=== PATIENT | female | born 1990 | race Caucasian/White ===

== ENCOUNTER 2023-02-13 21:33 | Outpatient (REF) | payer BC, SELFPAY ==
[2023-02-17 09:09] LABS: Age Gdln ACOG Testing Note (.); HPV Aptima Negative (Negative); IGP, Aptima HPV, rfx 16/18,45 Note (.)
== END 2023-02-13 21:34 | disposition home or self-care (01) ==
LOC: LAB 21:33
PROVIDERS: PCP Obstetrics & Gynecology; Visit Provider Obstetrics & Gynecology
DX: Z12.4 Encounter for screening for malignant neoplasm of cervix (principal); Z11.51 Encounter for screening for human papillomavirus (HPV)
CPT/HCPCS: 87624; G0145

== ENCOUNTER 2024-04-04 19:02 | Outpatient (REF) | payer BC, SELFPAY ==
[2024-04-10 13:08] LABS: Age Gdln ACOG Testing Note (.); HPV Aptima Negative (Negative); IGP, Aptima HPV, rfx 16/18,45 Note (.)
== END 2024-04-04 19:03 | disposition home or self-care (01) ==
LOC: LAB 19:02
PROVIDERS: PCP Obstetrics & Gynecology; Visit Provider Physician Assistant
DX: Z01.419 Encounter for gynecological examination (general) (routine) without abnormal findings (principal)
CPT/HCPCS: 87624; 88175

== ENCOUNTER 2025-04-08 12:40 | Outpatient (REF) | payer BC, SELFPAY ==
--- OUTSIDE RECORDS SUMMARY | 2025-04-08 12:48 | XMS_ITS | CCD ---
Author Organization [facility] Care Team Providers Care Technician Support Engineer Name Role Phone Ruel Carlson Primary Care Provider [phone] RUEL CARLSON Primary Care Unavailable Ruel Carlson DO Primary Care Provider RUEL CARLSON Primary Care Unavailable STEPHANIE PANGL Attending Unavailable CHRISTOPHER PANG Consulting Unavailable CHIRCHRISTOPHER WRAY Admitting Unavailable NUNO EDGAR Consulting Unavailable DUONG, DR PALAFOX Consulting Unavailable DUONG, DR PALAFOX Admitting Unavailable DUONG, DR PALAFOX Attending Unavailable KARASIK, DR JOHNSON Consulting Unavailable DUONG, DR PALAFOX Admitting Unavailable DUONG, DR PALAFOX Attending Unavailable DUONG, DR PALAFOX Consulting Unavailable DUONG, DR PALAFOX Procedure Practitioner Unavailab le DUONG, DR PALAFOX Admitting Unavailable DUONG, DR PALAFOX Attending Unavailable DUONG, DR PALAFOX Attending Unavailable DUONG, DR PALAFOX Admitting Unavailable DUONG, DR PALAFOX Consulting Unavailable DUONG, DR PALAFOX Admitting Unavailable DUONG, DR PALAFOX Attending Unavailable ZIEBER, DR GRISELDA Lemon Consulting Unavailable Ruel Carlson MD Primary Care Provider [phone] Daphne MAC, Anoop Marcum Primary Care Unavailable Luis A Peralta MD Attending Roby jacobson [facility] Consulting Unavailable Luis A Peralta MD Attending Roby Serna MD, Anoop Marcum Primary Care Unavailable Daphne MAC, Anoop Marcum Primary Care Unavailable Elda Hewitt PA-C Attending Randal Serna MD, Anoop Marcum Primary Care Unavailable Luis A Peralta MD Attending Roby Serna MD, Anoop Marcum Primary Care Unavailable Luis A Peralta MD Attending Roby jacobson Medications Current Medications Medication Drug Class(es) Dates Sig (Normalized) Sig (Original) Acetaminophen (5 sources) Start: 03-16-2022 acetaminophen (TYLENOL) tablet 650 mg End: 03-16-2022 take 2 tablets by mouth every six hours as needed for pain acetaminophen (TYLENOL) 325 MG tablet Take 650 mg by mouth every 6 hours as needed for Pain 0 03/16/2022 Discontinued (Stop Taking at Discharge) drospirenone 4 mg oral tablet (3 sources) Progestin Start: 06-28-2024 End: 04-08-2025 take 1 tablet by mouth once daily Drospirenone (Slynd) 4 MG tablet Indications: Encounter for initial prescription of contraceptive pills Take 4 mg by mouth Daily 84 tablet 2 06/28/2024 04/08/2025 Discontinued drospirenone 3 mg / ethinyl estradiol 0.03 mg oral tablet (12 sources) Progestin, Estrogen Start: 02-13-2023 End: 04-04-2024 drospirenone-ethinyl estradiol (Rachele, Ocella) 3-0.03 MG tablet Indications: Well woman exam with routine gynecological exam Take 1 tablet by mouth in the morning. 28 tablet 11 02/13/2023 04/04/2024 Discontinued (Other) Start: 09-01-2022 End: 04-08-2025 drospirenone-ethinyl estradi ol (Ocella) 3-0.03 MG tablet 1 (one) time each day at the same time. 09/01/2022 04/08/2025 Discontinued Start: 11-12-2019 take 1 tablet by jaswinder th once daily, then take 3 tablets by mouth once drospirenone-ethinyl estradiol (OSORIO) 3-0.02 MG per tablet Take 1 tablet by mouth daily 84 tablet 3 11/12/2019 Active Levonorgestrel-Ethinyl Estra d (Tyblume) 0.1-20 MG-MCG chewable tablet (3 sources) Start: 07-03-2024 End: 07-03-2025 Levonorgestrel-Ethinyl Estra d (Tyblume) 0.1-20 MG-MCG chewable tablet Indications: control counseling Chew 1 tablet Daily 28 tablet 11 07/03/2024 07/03/2025 Active norethindrone 0.35 mg oral tablet (3 sources) Start: 08-24-2022 End: 04-04-2024 norethindrone (Micronor) 0.3 5 MG tablet 1 (one) time each day at the same time. 08/24/2022 04/04/2024 Discontinued (Other) Osnswshq-Szb-Du-FA (, w/Iron & FA,) 27-0.8 MG tablet (7 sources) End: 04-08-2025 Rsbtphil-Tgt-Ak-FA (, w/Iron & FA,) 27-0.8 MG tablet 1 (one) time each day at the same time. 04/08/2025 Discontinued Multivi t-Min-Fe-FA (, w/Iron & FA,) 27-0.8 MG tablet 1 (one) time each day at the same time. Active Vit-Iron Carbonyl-FA ( VITAMIN PLUS IRON) 29-1 MG TABS tablet (1 source) Start: 03-16-2022 take 1 tablet by mouth in the morning Vit-Iron Carbonyl-FA ( VITAMIN PLUS IRON) 29-1 MG TABS tablet Take 1 tablet by mouth in the morning. 30 tablet 3 03/16/2022 Active vitamin plus iron 29-1 MG tablet 1 tablet (1 source) Start: 03-16-2022 vitam in plus iron 29-1 MG tablet 1 tablet Completed/Discontinued Medications Medication Drug Class(es) Dates Sig (Normalized) Sig (Original) Ascorbic Acid (4 sources) Vitamin C End: 03-16-2022 Ascorbic Acid (VITAMIN C PO) Take by mouth 0 03/16/2022 Discontinued (Stop Taking at Discharge) Ascorbic Acid (V ITAMIN C PO) Take by mouth 0 Active aspirin 81 mg chewable tablet (2 sources) Platelet Aggregation Inhibitor, Nonsteroidal Anti-inflammatory Drug Start: 03-16-2022 take 81 mg by mouth once daily 81 mg, Oral, DAILY, First dose on Mon03/16/22 at 0900, Until Discontinued Start: 03-15-2022 End: 03-15-2022 aspirin tablet 325 mg clomiPHENE citrate 50 mg oral tablet (2 sources) Estrogen Agonist/Antagonist Start: 11-03-2020 End: 03-16-2022 clomiPHENE (CLOMID) 50 MG tablet Take 3 tablets by mouth daily Take 1 tablet by mouth on days 5 through 9 of cycle 15 tablet 2 11/03/2020 03/16/2022 Discontinued (Stop Taking at Discharge) 0.4 ml enoxaparin sodium 100 mg/ml prefilled syringe (1 source) Low Molecular Weight Heparin Start: 03-16-2022 inject 40 mg by subcutaneous injection once daily 40 mg, SubCUTAneous, DAILY, First dose on Mon03/16/22 at 0900, Until Discontinued Indication of Use: Prophylaxis-DVT/PE medroxyPROGESTERone acetate 10 mg oral tablet (2 sources) Progestin Start: 11-03-2020 End: 03-16-2022 take 1 tablet by mouth once daily medroxyPROGESTERone (PROVERA) 10 MG tablet Take 1 tablet by mouth daily for 7 days 7 tablet 2 11/03/2020 03/16/2022 Discontinued (Stop Taking at Discharge) polyethylene glycol 3350 [id number] mg powder for oral solution (1 source) Osmotic Laxative Start: 03-16-2022 17 g, Oral, DAILY PRN, Starting on Mon03/16/22 at 0233, Until Discontinued, Constipation First line therapy for constipation 5 ml sodium chloride 9 mg/ml injection (4 sources) Start: 03-16-2022 take 1 dose intravenously twice daily 5-40 mL, IntraVENous, EVERY 12 HOURS SCHEDULED (2 times per day), First dose on Mon03/16/22 at 0900, Until Discontinued For Line Patency: Peripheral IV = 5 mL; Midline or Central Line = 10 mL/lumen. & nbsp;If following IV push medication, administer flush at same rate as the IV push. Flush volume is determined by type of infusion therapy being given. Fo r non-viscous solutions use: Peripheral IV = 5 mL Midline or Central Line = 10 mL/lumen For viscous solutions (i.e. blood components, parenteral nutrition, contrast media, or after obtaining blood sample) use: Peripheral IV = 10 mL Midline or Central Line = 20 mL/lumen Start: 03-16-2022 IntraVENous, a t 5-250 mL/hr, PRN, if patient receiving piggyback infusions and maintenance fluids are not ordered OR KVO fluids to protect IV site / prevent frequent line interruptions/ long duration, Starting on Mon03/16/22 at 0233 For piggyback infusion, administer at same rate as piggyback for a total of 25 mL. Enter 25 mL into dose field and piggyback rate into rate field of order. If piggyback is infusing at a rate less than 100 mL/hr, enter 25 mL into dose field and 100 mL/hr into rate field of order. For KVO fluids, enter rate of 20 mL/hr or less into rate field of order. Start: 03-16-2022 take 5-40 mL intrave nously once as needed 5-40 mL, IntraVENous, PRN, Starting on Mon03/16/22 at 0233, Until Discontinued, Line Care, After every IV line use For Line Patency: Peripheral IV = 5 mL; Midline or Central Line = 10 mL/lumen. If following IV push medication, administer flush at same rate as the IV push. Flush volume is determined by type of infusion therapy being given. For non-viscous solutions use: Peripheral IV = 5 mL Midline or Central Line = 10 mL/lumen For viscous solutions (i.e. 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] Onset: 12-26-2017 12-26-2017 Chronic Headache; including migraine (7 sources) Migraine; Translations: [Migraine, unspecified, not intractable, without status migrainosus] Onset: 01-15-2023 01-15-2023 Chronic Malaise and fatigue (1 source) Fatigue; Translations: [Other fatigue] Episodic OB-related trauma to perineum and vulva (1 source) First degree perineal laceration during delivery; Translations: [FIRST DEG PERINEAL LAC DUR DELIV] Onset: 07-21-2022 Episodic Other complications of ; puerperium affecting management of mother (5 sources) Maternal care for other (suspected) abnormality and damage, not applicable or unspecified; Translations: [Anomaly of kidney] Onset: 01-02-2018 03-15-2018 Episodic Other connective tissue disease (2 sources) Monoparesis - leg; Translations: [Other symptoms and signs involving the musculoskeletal system] Onset: 03-16-2022 Episodic Other nervous system disorders (1 source) Aphasia; Translations: [Aphasia] Chronic Other nutritional; endocrine; and metabolic disorders (1 source) Weight gain; Translations: [Weight gain finding] Episodic Residual codes; unclassified (1 source) 39 weeks gestation of ; Translations: [39 WEEKS GESTATION OF ] Onset: 07-21-2022 Episodic Transient cerebral ischemia (3 sources) Transient cerebral ischemia; Translations: [Transient cerebral ischemic attack, unspecified] Onset: 03-16-2022 Chronic Unclassified (2 sources) Congenital anomaly of the kidney; 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] Onset: 12-26-2017 12-26-2017 Unclassified (1 source) CONTACT W/AND (SUSP) EXPOS COVID-19; Translations: [CONTACT W/AND (SUSP) EXPOS COVID-19] Onset: 07-21-2022 Past or Other Problems Problem Classification Problem Date Documented Da te Episodic/Chronic Contraceptive and procreative management (7 sources) Patient encounter status; Translations: [Encounter for other general counseling and advice on contraception] Onset: 01-15-2023 01-15-2023 Episodic Other and delivery including normal (20 sources) ; Translations: [Term ] Onset: 08-24-2017 Resolved: 03-17-2018 03-17-2018 Episodic Other screening for suspected conditions (not mental disorders or infectious disease) (4 sources) Encounter for other specified screening; Translations: [ENCTR OTH SPEC SCREENING] Onset: 03-03-2022 Episodic Results Test Name Value Interpretation Reference Range Facility Surgery Office/Clinic Noteon 04-01-2025 Surgery Office/Clinic Note Chief Complaint Patient presents with follow up. History of Present Illness 35 year old female, patient of Dr. Serna. Patient presents for post-op flexible sigmoidoscopy. The date of procedure was 03/19/[address] Peralta due to rectal bleeding. Findings include large pedunculated sigmoid colon. Denies current BRBPR. Reports bowels moving daily, soft formed. Diagnosis ( Auth (Verified) ) Sigmoid colon polyp, biopsy: Tubulovillous adenoma (2.3 cm greatest diameter). [1] Review of Systems Please see HPI for ROS items that are relevant to today's office visit complaint. Physical Exam Vitals & Measurements HR: 67 (Peripheral) BP: 141/87 HT: 175 cm WT: 104.32 kg (Estimated) WT: 104.32 kg (Dosing) BMI: 34.06 General:no acute distress , well nourished, no acute fever, no excessive weight gain or weight loss Respiratory: breathing unlabored on room air no audible wheezing Incision/Wound: none Additional Vitals BP Position/Location: Sitting, Right arm Assessment and Plan: 1. Colon polyp Colon polyp: Tubulovillous adenoma (2.3 cm greatest diameter) 03/19/2025 healthy high fiber diet keep bowels soft formed moving daily 2tsp Benefiber repeat 1-2 years 2. Elevated blood pressure Elevated blood pressure readings/Hypertensio n Documentation (Done at the direction of [facility] management as part of a quality improvement for identification and treatment of HTN in our community): At this visit, the patient's blood pressure was checked as part of check in, and if BP was greater than 140 systolic and/or 90 diastolic, it was checked again prior to patient leaving. If still elevated above this limit, a recommendation was made for patient to follow up with his/her PCP to further investigate the presence and or severity of the HTN and to arrange treatment of this as felt appropriate by PCP. Time Spent with the Patient I have personally spent [30] minutes on this date, directly related to today's patient visit, including pre and post visit work, for this date of service. Time listed does not include time spent on separately billable services. Problem List/Past Medical History Ongoing No chronic problems Historical Colon polyp: Tubulovillous adenoma (2.3 cm greatest diameter) 03/19/2025 Procedure/Surgical History Flexible Sigmoidoscopy (03/19/2025) Medications Tyblume 100 mcg-20 mcg oral tablet, chewable, 1 tabs, Oral, Daily, on an empty stomach Allergies No Known Allergies Social History Alcohol Current, 1-2 times per year Substance Denies All Tobacco Never (less than 100 in lifetime) Use:. Family History Heart disease: Father. No known problems: Mother. Health Status Family Member(s) Health Maintenance Flexible Sigmoidoscopy (03/19/2025) Lab Results No qualifying data available. [1] Surgical Pathology Report; 03/19/2025 14:12 EDT Electronically signed by Elda Hewitt PA-C 04/01/25 14:08 EDT Electronically signed by Anali Gaffney 03/27/2025 11:28 EDT Normal [facility] IGP,APTIMA HPV,AGE GDLNon AGE GDLN ACOG TESTING Note . [facility] Comment on above: TESTS RESULT FLAG UN ITS REF RANGE LAB Clinician Provided Cytology Information Source.............Cervix;Endocervix No. of containers..01 ThinPrep Vial Age Algo ACOG Susan... FLAG LEGEND: L-Low Normal,H-High Normal,LL-Alert Low,HH-Alert High <-Panic Low,>-Panic High,A-Abnormal,AA-Critical Abnormal Performed at: 01 =[address] [place] [address] Faby Quiroz MD, HPV APTIMA Negative Negative [facility] Comment on above: This nucleic acid am plification test detects fourteen high- risk HPV types (16,18,31,33,35,39,45,51,52,56,58,59,66,68) without differentiation. Performed at: = - [address] [id number] Educational Advisor: Faby Quiroz MD, Phone: [phone] Performed at: - [address] [id number] Educational Advisor: Faby Quiroz MD, Phone: [phone] IGP, APTIMA HPV, RFX 16/18,45 Note . [facility] Comment on above: TESTS RESULT FLAG UN ITS REF RANGE LAB DIAGNOSIS: 02 NEGATIVE FOR INTRAEPITHELIAL LESION OR MALIGNANCY. Specimen adequacy: 02 Satisfactory for evaluation. No endocervical component is identified. Performed by: 02 Kayy Kowalski, Rug Drying Machine Operator ([facility]) . 02 Note: Note 02 The Pap smear is a screening test designed to aid in the detection of premalignant and malignant conditions of the uterine cervix. It is not a diagnostic procedure and should not be used as the sole means of detecting cervical cancer. Both false-positive and false-negative reports do occur. Test Methodology: Note 02 This liquid based ThinPrep(R) pap test was screened with the use of an image guided system. HPV Genotype Reflex Note 02 Criteria not met, HPV Genotype not performed. FLAG LEGEND: L-Low Normal,H-High Normal,LL-Alert Low,HH-Alert High <-Panic Low,>-Panic High,A-Abnormal,AA-Critical Abnormal Performed at: [address] [facility] [address] [id number] Faby Quiroz MD, BRUSH-SPATULA CERVIX ENDOCERVIX [facility] CBC AUTO DIFFon 07-14-2022 BASO # 0.0 103/ul Normal 0.0-0.1 [facility] Comment on above: Performed By: #### C BC #### [facility] [address] [place] [address] Dr. Sherif Rogers Basophils/100 WBC (Bld) 0.4 % Normal 0.2-2.0 [facility] Comment on above: Performed By: #### C BC #### [facility] [address] [place] [address] Dr. Sherif Rogers EO # 0.1 103/ul Normal 0.0-0.7 [facility] Comment on above: Performed By: #### C BC #### [facility] [address] [place] [address] Dr. Sherif Rogers Eosinophils/100 WBC (Bld) 0.6 % Critically low 0.9-7.0 [facility] Comment on above: Performed By: #### C BC #### [facility] [address] [place] [address] Dr. Sherif Rogers Erythrocyte distribution width (RBC) [Ratio] 13.6 % Normal 11.0-15.0 [facility] Comment on above: Performed By: #### C BC #### [facility] [address] [place] [address] Dr. Sherif Rogers Hematocrit (Bld) [Volume fraction] 32.7 % Critically low 36.0-48.0 [facility] Comment on above: Performed By: #### C BC #### [facility] [address] [place] [address] Dr. Sherif Rogers Hemoglobin (Bld) [Mass/Vol] 10.5 g/dL Critically low 12.0-16.0 [facility] Comment on above: Performed By: #### C BC #### [facility] [address] [place] [address] Dr. Sherif Rogers IG # 0.08 10e3/ul Critically high 0.00-0.03 [facility] Comment on above: Performed By: #### C BC #### [facility] [address] [place] [address] Dr. Sherif Rogers IG % 0.8 % Critically high 0.0-0.5 [facility] Comment on above: Performed By: #### C BC #### [facility] [address] [place] [address] Dr. Sherif Rogers LYMPH # 2.3 103/ul Normal 1.2-3.8 [facility] Comment on above: Performed By: #### C BC #### [facility] [address] [place] [address] Dr. Sherif Rogers Lymphocytes/100 WBC (Bld) 24.7 % Normal 20.5-60.0 [facility] Comment on above: Performed By: #### C BC #### [facility] [address] [place] [address] Dr. Sherif Rogres MANUAL DIFF REQ NO Normal [facility] Comment on above: Performed By: #### C BC #### [facility] [address] [place] [address] Dr. Sherif Rogers MCH (RBC) [Entitic mass] 28.3 pg Normal 26.7-34.0 [facility] Comment on above: Performed By: #### C BC #### [facility] [address] [place] [address] Dr. Sherif Rogers MCHC (RBC) [Mass/Vol] 32.1 g/dL Normal 29.9-35.2 [facility] Comment on above: Performed By: #### C BC #### [facility] [address] [address] [address] Sherif Rogers MCV (RBC) [Entitic vol] 88.1 fL Normal 81.0-99.0 [facility] Comment on above: Performed By: #### C BC #### [facility] [address] [address] [address] Sherif Rogers MONO # 0.8 103/ul Normal 0.3-0.8 [facility] Comment on above: Performed By: #### C BC #### [facility] [address] [address] [address] Sherif Rogers Monocytes/100 WBC (Bld) 7.9 % Normal 1.7-12.0 [facility] Comment on above: Performed By: #### C BC #### [facility] [address] [place] [address] Dr. Sherif Rogers NEUT # 6.2 103/ul Normal 1.4-6.5 [facility] Comment on above: Performed By: #### C BC #### [facility] [address] [place] [address] Dr. Sherif Rogers Neutrophils/100 WBC (Bld) 65.6 % Normal 43.0-75.0 [facility] Comment on above: Performed By: #### C BC #### [facility] [address] [address] [address] Sherif Rogers Platelet mean volume (Bld) [Entitic vol] 9.1 fL Critically low 9.5-13.5 [facility] Comment on above: Performed By: #### C BC #### [facility] [address] [address] [address] Sherif Rogers PLT 221 103/ul Normal 150-[address] [facility] Comment on above: Performed By: #### C BC #### [facility] [address] [place] [address] Dr. Sherif Rogers RBC 3.71 106/ul Critically low 4.20-5.40 [facility] Comment on above: Performed By: #### C BC #### [facility] [address] [address] [address] Sherif Rogers WBC 9.5 103/ul Normal 4.0-11.0 [facility] Comment on above: Performed By: #### C BC #### [facility] [address] [address] [address] Sherif Rogers CBC AUTO DIFFon 07-13-2022 BASO # 0.0 103/ul Normal 0.0-0.1 [facility] Comment on above: Performed By: #### C BC #### [facility] [address] [address] [address] Sherif Rogers Basophils/100 WBC (Bld) 0.2 % Normal 0.2-2.0 [facility] Comment on above: Performed By: #### C BC #### [facility] [address] [place] [address] Dr. Sherif Rogers EO # 0.1 103/ul Normal 0.0-0.7 [facility] Comment on above: Performed By: #### C BC #### [facility] [address] [place] [address] Dr. Sherif Rogers Eosinophils/100 WBC (Bld) 0.6 % Critically low 0.9-7.0 [facility] Comment on above: Performed By: #### C BC #### [facility] [address] [place] [address] Dr. Sherif Rogers Erythrocyte distribution width (RBC) [Ratio] 13.2 % Normal 11.0-15.0 [facility] Comment on above: Performed By: #### C BC #### [facility] [address] [place] [address] Dr. Sherif Rogers Hematocrit (Bld) [Volume fraction] 35.0 % Critically low 36.0-48.0 [facility] Comment on above: Performed By: #### C BC #### [facility] [address] [place] [address] Dr. Sherif Rogers Hemoglobin (Bld) [Mass/Vol] 11.9 g/dL Critically low 12.0-16.0 [facility] Comment on above: Performed By: #### C BC #### [facility] [address] [address] [address] Sherif Rogers IG # 0.09 10e3/ul Critically high 0.00-0.03 [facility] Comment on above: Performed By: #### C BC #### [facility] [address] [address] [address] Sherif Rogers IG % 0.8 % Critically high 0.0-0.5 [facility] Comment on above: Performed By: #### C BC #### [facility] [address] [address] [address] Sherif Rogers LYMPH # 2.8 103/ul Normal 1.2-3.8 [facility] Comment on above: Performed By: #### C BC #### [facility] [address] [place] [address] Dr. Sherif Rogers Lymphocytes/100 WBC (Bld) 23.4 % Normal 20.5-60.0 [facility] Comment on above: Performed By: #### C BC #### [facility] [address] [place] [address] Dr. Sherif Rogers MANUAL DIFF REQ NO Normal [facility] Comment on above: Performed By: #### C BC #### [facility] [address] [place] [address] Dr. Sherif Rogers MCH (RBC) [Entitic mass] 29.2 pg Normal 26.7-34.0 [facility] Comment on above: Performed By: #### C BC #### [facility] [address] [place] [address] Dr. Sherif Rogers MCHC (RBC) [Mass/Vol] 34.0 g/dL Normal 29.9-35.2 [facility] [facility] Comment on above: Performed By: #### C BC #### [facility] [address] [place] [address] Dr. Sherif Rogers MCV (RBC) [Entitic vol] 85.8 fL Normal 81.0-99.0 [facility] Comment on above: Performed By: #### C BC #### [facility] [address] [address] [address] Sherif Rogers MONO # 1.0 103/ul Critically high 0.3-0.8 [facility] Comment on above: Performed By: #### C BC #### [facility] [address] [address] [address] Sherif Rogers Monocytes/100 WBC (Bld) 8.2 % Normal 1.7-12.0 [facility] Comment on above: Performed By: #### C BC #### [facility] [address] [address] [address] Sherif Rogers NEUT # 8.0 103/ul Critically high 1.4-6.5 [facility] Comment on above: Performed By: #### C BC #### [facility] [address] [place] [address] Dr. Sherif Rogers Neutrophils/100 WBC (Bld) 66.8 % Normal 43.0-75.0 [facility] Comment on above: Performed By: #### C BC #### [facility] [address] [address] [address] Sherif Rogers Platelet mean volume (Bld) [Entitic vol] 9.4 fL Critically low 9.5-13.5 [facility] Comment on above: Performed By: #### C BC #### [facility] [address] [address] [address] Sherif Rogers PLT 285 103/ul Normal 150-[address] [facility] Comment on above: Performed By: #### C BC #### [facility] [address] [address] [address] Sherif Rogers RBC 4.08 106/ul Critically low 4.20-5.40 [facility] Comment on above: Performed By: #### C BC #### [facility] [address] [address] [address] Sherif Rogers WBC 11.9 103/ul Critically high 4.0-11.0 [facility] Comment on above: Performed By: #### C BC #### [facility] [address] [place] [address] Dr. Sherif Rogers Covid-19 PCR ([facility])on SARS-CoV-2 (COVID-19) RNA JAN+probe Ql (Unsp spec) Not detected Normal NOT DETECTED [facility] Comment on above: Result Comment: When diagnostic testing is negative, the possibility of a false negative should be considered in the context of a patient's recent exposures and the presence of clinical signs and symptoms consistent with SARS-CoV-2. This test is not yet approved or cleared by the [place] FDA. When there are no FDA-approved or cleared tests available, and other criteria are met, FDA can make tests available under an emergency access mechanism called an Emergency Use Authorization (EUA). The EUA for this test is supported by the [place] of Health and Human Service's declaration that circumstances exist to justify the emergency use of in vitro diagnostics for the detection and/or diagnosis of the virus that causes COVID-19. This EUA will remain in effect for the duration of the COVID-19 declaration justifying emergency of IVDs, unless it is terminated or revoked by the FDA (after which the test may no longer be used). Performed By: #### C VDTB #### [facility] [address] [place] [address] Dr. Sherif Rogers DRUG SCREEN RAPID (URINE)on 07-13-2022 AMP Negative Normal NEGATIVE [facility] Comment on above: Performed By: #### D RUGRPD #### [facility] [address] [place] [address] Dr. Sherif Rogers BAR Negative Normal NEGATIVE [facility] Comment on above: Performed By: #### D RUGRPD #### [facility] [address] [place] [address] Dr. Sherif Rogers BUP Negative Normal NEGATIVE [facility] Comment on above: Performed By: #### D RUGRPD #### [facility] [address] [place] [address] Dr. Sherif Rogers BZO Negative Normal NEGATIVE [facility] Comment on above: Performed By: #### D RUGRPD #### [facility] [address] [place] [address] Dr. Sherif Rogers CELSO Negative Normal NEGATIVE [facility] Comment on above: Performed By: #### D RUGRPD #### [facility] [address] [place] [address] Dr. Sherif Rogers CUT-OFFS SEE BELOW Normal [facility] Comment on above: Result Comment: AMP (Amphetamine): 500ng/mL, BAR (Barbituates): 200 ng/mL, BZO (Benzodiazepines): 150 ng/mL, BUP (Buprenorphine): 10 ng/mL, CELSO (Cocaine): 150 ng/mL, mAMP (Methamphetamine): 500 ng/mL, MTD (Methadone): 200 ng/mL, OPI (Opiates): 100 ng/mL, OXY (Oxycodone): 100 ng/mL, PCP (Phencyclidine): 25 ng/mL, PPX (Propoxyphene): 300 ng/mL, THC (Cannabinoids): 50 ng/mL, TCA (Trycyclic Antidepressants): 300 ng/mL Performed By: #### D RUGRPD #### [facility] [address] [place] [address] Dr. Sherif Rogers DRUG CUT HEADER DRUG CLASS TEST SYSTEM CUT-OFF CONCENTRATIONS ARE FOLLOWS: Normal [facility] Comment on above: Performed By: #### D RUGRPD #### [facility] [address] [place] [address] Dr. Sherif Rogers mAMP Negative Normal NEGATIVE [facility] Comment on above: Performed By: #### D RUGRPD #### [facility] [address] [place] [address] Dr. Sherif Rogers MTD Negative Normal NEGATIVE [facility] Comment on above: Performed By: #### D RUGRPD #### [facility] [address] [place] [address] Dr. Sherif Rogers OPI Negative Normal NEGATIVE [facility] Comment on above: Performed By: #### D RUGRPD #### [facility] [address] [place] [address] Dr. Sherif Rogers OXY Negative Normal NEGATIVE [facility] Comment on above: Performed By: #### D RUGRPD #### [facility] [address] [address] [address] Sherif Rogers PCP Negative Normal NEGATIVE [facility] Comment on above: Performed By: #### D RUGRPD #### [facility] [address] [address] [address] Sherif Rogers PPX Negative Normal NEGATIVE [facility] Comment on above: Performed By: #### D RUGRPD #### [facility] [address] [address] [address] Sherif Rogers TCA Negative Normal NEGATIVE [facility] Comment on above: Performed By: #### D RUGRPD #### [facility] [address] [address] [address] Sherif Rogers THC Negative Normal NEGATIVE [facility] Comment on above: Performed By: #### D RUGRPD #### [facility] [address] [place] [address] Dr. Sherif Rogers TYPE AND SCREENon 07-13-2022 TYPE AND SCREEN Negative Normal [facility] Comment on above: Performed By: #### T NS #### [facility] [address] [place] [address] Dr. Sherif Rogers GROUP B STREP CULTUREon 06-07 S. agalactiae Ag Ql (Unsp spec) Culture Observations: NEGATIVE FOR GROUP B STREPTOCOCCUS. Normal [facility] Comment on above: Performed By: #### G BSCX #### [facility] [address] [place] [address] Dr. Sherif Rogers LIPID PANELon 03-16-2022 Cholesterol [Mass/Vol] 166 mg/dL NINF - 200 mg/dL [facility] Comment on above: Cholesterol Guidelines: <200 Desirable 200-240 Borderline >240 Undesirable Cholesterol in HDL [Mass/Vol] 51 mg/dL 40 - PINF mg/dL [facility] Comment on above: HDL Guidelines: <40 Undesirable 40-59 Borderline >59 Desirable Cholesterol in LDL [Mass/Vol] 80 mg/dL 0 - 130 mg/dL [facility] Comment on above: LDL Guidelines: <100 Desirable 100-129 Near to/above Desirable 130-159 Borderline >159 Undesirable Direct (measured) LDL and calculated LDL are not interchangeable tests. Cholesterol.total/Chol esterol in HDL [Mass ratio] 3.3 {ratio} NINF - 5 [facility] Interpretation and review of laboratory results Abnormal [facility] Triglyceride [Mass/Vol] 177 mg/dL High NINF - 150 mg/dL [facility] Comment on above: Triglyceride Guidelines: <150 Desirable 150-199 Borderline 200-499 High >499 Very high Based on AHA Guidelines for fasting triglyceride, May 2012. [facility] Lipid Profileon 03-16-2022 Cholesterol [Mass/Vol] 166 mg/dL Normal <200 [facility] Comment on above: Result Comment: Cholesterol Guidelines: <200 Desirable 200-240 Borderline >240 Undesirable Performed By: #### L IPR #### [facility] [employer] [address] [place] [address] [phone] Educational Advisor: Edward Walker MD Cholesterol in HDL [Mass/Vol] 51 mg/dL Normal >40 [facility] Comment on above: Result Comment: HDL Guidelines: <40 Undesirable 40-59 Borderline >59 Desirable Performed By: #### L IPR #### [facility] [employer] [address] [place] [address] [phone] Educational Advisor: Edward Walker MD Cholesterol in LDL [Mass/Vol] 80 mg/dL Normal 0-130 [facility] Comment on above: Result Comment: LDL Guidelines: <100 Desirable 100-129 Near to/above Desirable 130-159 Borderline >159 Undesirable Direct (measured) LDL and calculated LDL are not interchangeable tests. Performed By: #### L IPR #### [facility] [address] [place] [phone] Educational Advisor: Edward Walker MD Cholesterol.total/Chol esterol in HDL [Mass ratio] 3.3 {ratio} Normal <5 [facility] Comment on above: Performed By: #### L IPR #### [facility] [address] [place] [phone] Educational Advisor: Edward Walker MD Triglyceride [Mass/Vol] 177 mg/dL High <150 [facility] Comment on above: Result Comment: Triglyceride Guidelines: <150 Desirable 150-199 Borderline 200-499 High >499 Very high Based on AHA Guidelines for fasting triglyceride, May 2012. Performed By: #### [facility] #### [facility] [address] [place] [address] Educational Advisor: Edward Walker MD MRA HEAD WO CONTRASTon 03-16 MRA HEAD WO CONTRAST EXAMINATION: MRI OF THE BRAIN WITHOUT CONTRAST; MRA OF THE HEAD WITHOUT CONTRAST; MRA OF THE NECK WITHOUT CONTRAST 03/16/2022 11:00 am: TECHNIQUE: Multiplanar multisequence MRI of the brain was performed without the administration of intravenous contrast.; MRA of the head was performed utilizing [id number] imaging with MIP images. No intravenous contrast was administered.; Multiplanar multisequence MRA of the neck was performed without the administration of intravenous contrast. Stenosis of the internal carotid arteries measured using NASCET criteria. COMPARISON: None. HISTORY: ORDERING SYSTEM PROVIDED HISTORY: TIA TECHNOLOGIST PROVIDED HISTORY: TIA Reason for Exam: tia; ORDERING SYSTEM PROVIDED HISTORY: TIA workup TECHNOLOGIST PROVIDED HISTORY: TIA workup Reason for Exam: tia workup; ORDERING SYSTEM PROVIDED HISTORY: stroke evaluation, clinical presentation of TIA TECHNOLOGIST PROVIDED HISTORY: stroke evaluation, clinical presentation of TIA Reason for Exam: stroke evaluation, clinical presentation of TIA Initial evaluation. FINDINGS: MRI BRAIN: INTRACRANIAL STRUCTURES/VENTRICLE S: There is no acute infarct. No mass effect or midline shift. No evidence of an acute intracranial hemorrhage. The ventricles and sulci are normal in size and configuration. The sellar/suprasellar regions appear unremarkable. The normal signal voids within the major intracranial vessels appear maintained. There are low-lying cerebellar tonsils. ORBITS: The visualized portion of the orbits demonstrate no acute abnormality. SINUSES: There is a small mucous retention cysts within the right maxillary antrum. The mastoid air cells demonstrate no acute abnormality. BONES/SOFT TISSUES: The bone marrow signal intensity appears normal. The soft tissues demonstrate no acute abnormality. MRA NECK: AORTIC ARCH/ARCH VESSELS: The aortic arch and arch vessels are not well evaluated on this noncontrast exam. CAROTID ARTERIES: No dissection, arterial injury, or hemodynamically significant stenosis by NASCET criteria. VERTEBRAL ARTERIES: No dissection, arterial injury, or significant stenosis. MRA HEAD: ANTERIOR CIRCULATION: No significant stenosis of the intracranial internal carotid, anterior cerebral, or middle cerebral arteries. POSTERIOR CIRCULATION: No significant stenosis of the vertebral, basilar, or posterior cerebral arteries. Persistent supply the posterior cerebral arteries bilaterally. No intracranial aneurysm identified. IMPRESSION: 1. Mild cerebellar tonsillar ectopia. 2. Otherwise, unremarkable noncontrast MRI of the brain. 3. Unremarkable MRA of the head. 4. Grossly unremarkable MRA of the neck within the limitations of this noncontrast exam. Interpreted by: Wei Gu MD Signed by: Wei Gu MD 03/16/22 Final result Normal [facility] MRA NECK WO CONTRASTon 03-16 MRA NECK WO CONTRAST EXAMINATION: MRI OF THE BRAIN WITHOUT CONTRAST; MRA OF THE HEAD WITHOUT CONTRAST; MRA OF THE NECK WITHOUT CONTRAST 03/16/2022 11:00 am: TECHNIQUE: Multiplanar multisequence MRI of the brain was performed without the administration of intravenous contrast.; MRA of the head was performed utilizing [id number] imaging with MIP images. No intravenous contrast was administered.; Multiplanar multisequence MRA of the neck was performed without the administration of intravenous contrast. Stenosis of the internal carotid arteries measured using NASCET criteria. COMPARISON: None. HISTORY: ORDERING SYSTEM PROVIDED HISTORY: TIA TECHNOLOGIST PROVIDED HISTORY: TIA Reason for Exam: tia; ORDERING SYSTEM PROVIDED HISTORY: TIA workup TECHNOLOGIST PROVIDED HISTORY: TIA workup Reason for Exam: tia workup; ORDERING SYSTEM PROVIDED HISTORY: stroke evaluation, clinical presentation of TIA TECHNOLOGIST PROVIDED HISTORY: stroke evaluation, clinical presentation of TIA Reason for Exam: stroke evaluation, clinical presentation of TIA Initial evaluation. FINDINGS: MRI BRAIN: INTRACRANIAL STRUCTURES/VENTRICLE S: There is no acute infarct. No mass effect or midline shift. No evidence of an acute intracranial hemorrhage. The ventricles and sulci are normal in size and configuration. The sellar/suprasellar regions appear unremarkable. The normal signal voids within the major intracranial vessels appear maintained. There are low-lying cerebellar tonsils. ORBITS: The visualized portion of the orbits demonstrate no acute abnormality. SINUSES: There is a small mucous retention cysts within the right maxillary antrum. The mastoid air cells demonstrate no acute abnormality. BONES/SOFT TISSUES: The bone marrow signal intensity appears normal. The soft tissues demonstrate no acute abnormality. MRA NECK: AORTIC ARCH/ARCH VESSELS: The aortic arch and arch vessels are not well evaluated on this noncontrast exam. CAROTID ARTERIES: No dissection, arterial injury, or hemodynamically significant stenosis by NASCET criteria. VERTEBRAL ARTERIES: No dissection, arterial injury, or significant stenosis. MRA HEAD: ANTERIOR CIRCULATION: No significant stenosis of the intracranial internal carotid, anterior cerebral, or middle cerebral arteries. POSTERIOR CIRCULATION: No significant stenosis of the vertebral, basilar, or posterior cerebral arteries. Persistent supply the posterior cerebral arteries bilaterally. No intracranial aneurysm identified. IMPRESSION: 1. Mild cerebellar tonsillar ectopia. 2. Otherwise, unremarkable noncontrast MRI of the brain. 3. Unremarkable MRA of the head. 4. Grossly unremarkable MRA of the neck within the limitations of this noncontrast exam. Interpreted by: Wei Gu MD Signed by: Wei Gu MD 03/16/22 Final result Normal [facility] MRI BRAIN WO CONTRASTon 08- MRI BRAIN WO CONTRAST EXAMINATION: MRI OF THE BRAIN WITHOUT CONTRAST; MRA OF THE HEAD WITHOUT CONTRAST; MRA OF THE NECK WITHOUT CONTRAST 03/16/2022 11:00 am: TECHNIQUE: Multiplanar multisequence MRI of the brain was performed without the administration of intravenous contrast.; MRA of the head was performed utilizing [id number] imaging with MIP images. No intravenous contrast was administered.; Multiplanar multisequence MRA of the neck was performed without the administration of intravenous contrast. Stenosis of the internal carotid arteries measured using NASCET criteria. COMPARISON: None. HISTORY: ORDERING SYSTEM PROVIDED HISTORY: TIA TECHNOLOGIST PROVIDED HISTORY: TIA Reason for Exam: tia; ORDERING SYSTEM PROVIDED HISTORY: TIA workup TECHNOLOGIST PROVIDED HISTORY: TIA workup Reason for Exam: tia workup; ORDERING SYSTEM PROVIDED HISTORY: stroke evaluation, clinical presentation of TIA TECHNOLOGIST PROVIDED HISTORY: stroke evaluation, clinical presentation of TIA Reason for Exam: stroke evaluation, clinical presentation of TIA Initial evaluation. FINDINGS: MRI BRAIN: INTRACRANIAL STRUCTURES/VENTRICLE S: There is no acute infarct. No mass effect or midline shift. No evidence of an acute intracranial hemorrhage. The ventricles and sulci are normal in size and configuration. The sellar/suprasellar regions appear unremarkable. The normal signal voids within the major intracranial vessels appear maintained. There are low-lying cerebellar tonsils. ORBITS: The visualized portion of the orbits demonstrate no acute abnormality. SINUSES: There is a small mucous retention cysts within the right maxillary antrum. The mastoid air cells demonstrate no acute abnormality. BONES/SOFT TISSUES: The bone marrow signal intensity appears normal. The soft tissues demonstrate no acute abnormality. MRA NECK: AORTIC ARCH/ARCH VESSELS: The aortic arch and arch vessels are not well evaluated on this noncontrast exam. CAROTID ARTERIES: No dissection, arterial injury, or hemodynamically significant stenosis by NASCET criteria. VERTEBRAL ARTERIES: No dissection, arterial injury, or significant stenosis. MRA HEAD: ANTERIOR CIRCULATION: No significant stenosis of the intracranial internal carotid, anterior cerebral, or middle cerebral arteries. POSTERIOR CIRCULATION: No significant stenosis of the vertebral, basilar, or posterior cerebral arteries. Persistent supply the posterior cerebral arteries bilaterally. No intracranial aneurysm identified. IMPRESSION: 1. Mild cerebellar tonsillar ectopia. 2. Otherwise, unremarkable noncontrast MRI of the brain. 3. Unremarkable MRA of the head. 4. Grossly unremarkable MRA of the neck within the limitations of this noncontrast exam. Interpreted by: Wei Gu MD Signed by: Wei Gu MD 03/16/22 Final result Normal [facility] No Panel Informationon 03-16 1. Mild cerebellar tonsillar ectopia. 2. Otherwise, unremarkable noncontrast MRI of the brain. 3. Unremarkable MRA of the head. 4. Grossly unremarkable MRA of the neck within the limitations of this noncontrast exam. [facility] EXAMINATION: MRI OF THE BRAIN WITHOUT CONTRAST; MRA OF THE HEAD WITHOUT CONTRAST; MRA OF THE NECK WITHOUT CONTRAST 03/16/2022 11:00 am: TECHNIQUE: Multiplanar multisequence MRI of the brain was performed without the administration of intravenous contrast.; MRA of the head was performed utilizing [id number] imaging with MIP images. No intravenous contrast was administered.; Multiplanar multisequence MRA of the neck was performed without the administration of intravenous contrast. Stenosis of the internal carotid arteries measured using NASCET criteria. COMPARISON: None. HISTORY: ORDERING SYSTEM PROVIDED HISTORY: TIA TECHNOLOGIST PROVIDED HISTORY: TIA Reason for Exam: tia; ORDERING SYSTEM PROVIDED HISTORY: TIA workup TECHNOLOGIST PROVIDED HISTORY: TIA workup Reason for Exam: tia workup; ORDERING SYSTEM PROVIDED HISTORY: stroke evaluation, clinical presentation of TIA TECHNOLOGIST PROVIDED HISTORY: stroke evaluation, clinical presentation of TIA Reason for Exam: stroke evaluation, clinical presentation of TIA Initial evaluation. FINDINGS: MRI BRAIN: INTRACRANIAL STRUCTURES/VENTRICLE S: There is no acute infarct. No mass effect or midline shift. No evidence of an acute intracranial hemorrhage. The ventricles and sulci are normal in size and configuration. The sellar/suprasellar regions appear unremarkable. The normal signal voids within the major intracranial vessels appear maintained. There are low-lying cerebellar tonsils. ORBITS: The visualized portion of the orbits demonstrate no acute abnormality. SINUSES: There is a small mucous retention cysts within the right maxillary antrum. The mastoid air cells demonstrate no acute abnormality. BONES/SOFT TISSUES: The bone marrow signal intensity appears normal. The soft tissues demonstrate no acute abnormality. MRA NECK: AORTIC ARCH/ARCH VESSELS: The aortic arch and arch vessels are not well evaluated on this noncontrast exam. CAROTID ARTERIES: No dissection, arterial injury, or hemodynamically significant stenosis by NASCET criteria. VERTEBRAL ARTERIES: No dissection, arterial injury, or significant stenosis. MRA HEAD: ANTERIOR CIRCULATION: No significant stenosis of the intracranial internal carotid, anterior cerebral, or middle cerebral arteries. POSTERIOR CIRCULATION: No significant stenosis of the vertebral, basilar, or posterior cerebral arteries. Persistent supply the posterior cerebral arteries bilaterally. No intracranial aneurysm identified. [facility] Wei Gu MD - 03/16/2022 EXAMINATION: MRI OF THE BRAIN WITHOUT CONTRAST; MRA OF THE HEAD WITHOUT CONTRAST; MRA OF THE NECK WITHOUT CONTRAST 03/16/2022 11:00 am: TECHNIQUE: Multiplanar multisequence MRI of the brain was performed without the administration of intravenous contrast.; MRA of the head was performed utilizing [id number] imaging with MIP images. No intravenous contrast was administered.; Multiplanar multisequence MRA of the neck was performed without the administration of intravenous contrast. Stenosis of the internal carotid arteries measured using NASCET criteria. COMPARISON: None. HISTORY: ORDERING SYSTEM PROVIDED HISTORY: TIA TECHNOLOGIST PROVIDED HISTORY: TIA Reason for Exam: tia; ORDERING SYSTEM PROVIDED HISTORY: TIA workup TECHNOLOGIST PROVIDED HISTORY: TIA workup Reason for Exam: tia workup; ORDERING SYSTEM PROVIDED HISTORY: stroke evaluation, clinical presentation of TIA TECHNOLOGIST PROVIDED HISTORY: stroke evaluation, clinical presentation of TIA Reason for Exam: stroke evaluation, clinical presentation of TIA Initial evaluation. FINDINGS: MRI BRAIN: INTRACRANIAL STRUCTURES/VENTRICLE S: There is no acute infarct. No mass effect or midline shift. No evidence of an acute intracranial hemorrhage. The ventricles and sulci are normal in size and configuration. The sellar/suprasellar regions appear unremarkable. The normal signal voids within the major intracranial vessels appear maintained. There are low-lying cerebellar tonsils. ORBITS: The visualized portion of the orbits demonstrate no acute abnormality. SINUSES: There is a small mucous retention cysts within the right maxillary antrum. The mastoid air cells demonstrate no acute abnormality. BONES/SOFT TISSUES: The bone marrow signal intensity appears normal. The soft tissues demonstrate no acute abnormality. MRA NECK: AORTIC ARCH/ARCH VESSELS: The aortic arch and arch vessels are not well evaluated on this noncontrast exam. CAROTID ARTERIES: No dissection, arterial injury, or hemodynamically significant stenosis by NASCET criteria. VERTEBRAL ARTERIES: No dissection, arterial injury, or significant stenosis. MRA HEAD: ANTERIOR CIRCULATION: No significant stenosis of the intracranial internal carotid, anterior cerebral, or middle cerebral arteries. POSTERIOR CIRCULATION: No significant stenosis of the vertebral, basilar, or posterior cerebral arteries. Persistent supply the posterior cerebral arteries bilaterally. No intracranial aneurysm identified. IMPRESSION: 1. Mild cerebellar tonsillar ectopia. 2. Otherwise, unremarkable noncontrast MRI of the brain. 3. Unremarkable MRA of the head. 4. Grossly unremarkable MRA of the neck within the limitations of this noncontrast exam. [employer] Work Phone: Radiology Study observation (narrative) [email or web address] Phone: No Panel InformationOrdered By: Wei Gu on 03-16-2022 [email or web address] Phone: Basic Metabolic Panelon 08-0 Anion gap [Moles/Vol] 13 mmol/L 9 - 17 mmol/L [employer] Calcium [Mass/Vol] 9.3 mg/dL 8.6 - 10. 4 mg/dL [employer] Chloride [Moles/Vol] 102 mmol/L 98 - 10 7 mmol/L [employer] CO2 [Moles/Vol] 22 mmol/L 20 - 31 mmol/L [employer] Creatinine [Mass/Vol] 0.69 mg/dL 0.5 - 0.9 mg/dL [employer] GFR >60 60 - PI NF mL/min [facility] GFR Non- >60 60 - PINF mL/min [facility] Glucose [Mass/Vol] 95 mg/dL 70 - 99 mg/dL [facility] Interpretation and review of laboratory results Abnormal [facility] Potassium [Moles/Vol] 3.4 mmol/L Low 3.7 - 5.3 mmol/L [facility] Sodium [Moles/Vol] 137 mmol/L 135 - 144 mmol/L [facility] Urea nitrogen (BldV) [Mass/Vol] 8 mg/dL 6 - 20 mg/dL [facility] Urea nitrogen/Creatinine (Bld) [Mass ratio] 12 - [facility] Basic Metabolic Profon 03-15 (cont.) Normal [facility] Comment on above: Result Comment: Aver age GFR for 30-39 years old: 107 mL/min/1.73sq m Chronic Kidney Disease: <60 mL/min/1.73sq m Kidney failure: <15 mL/min/1.73sq m eGFR calculated using average adult body mass. Additional eGFR calculator available at: http://www.[employer].etaskr/multiple_crcl_2012.htm Performed By: #### C DONOVAN HOPPER, PT #### [facility] [address] [place] [address] [place] [address] Educational Advisor: Dylan Tejeda MD Anion gap [Moles/Vol] 13 mmol/L Normal 04-23 [facility] Comment on above: Performed By: #### C WARD, BMP, PT #### [facility] [address] [place] [address] Educational Advisor: Dylan Tejeda MD BUN/CRE Ratio 12 Normal 04-26 [facility] Comment on above: Performed By: #### C WARD BMP, PT #### [facility] [address] [place] [address] Educational Advisor: Dylan Tejeda MD Calcium [Mass/Vol] 9.3 mg/dL Normal 8.6-10.4 [facility] Comment on above: Performed By: #### C DP, BMP, PT #### [facility] [address] [place] [address] Educational Advisor: Dylan Tejeda MD Chloride [Moles/Vol] 102 mmol/L Normal 98-107 [facility] Comment on above: Performed By: #### C DP, BMP, PT #### [facility] [address] [place] [address] Educational Advisor: Dylan Tejeda MD CO2 [Moles/Vol] 22 mmol/L Normal 20-31 [facility] Comment on above: Performed By: #### C DP, BMP, PT #### [facility] [address] [place] [address] Educational Advisor: Dylan Tejeda MD Creatinine [Mass/Vol] 0.69 mg/dL Normal 0.50-0.90 [facility] Comment on above: Performed By: #### C DP, BMP, PT #### [facility] [address] [place] [address] Educational Advisor: Dylan Tejeda MD GFR, Amer >60 Normal >60 [facility] Comment on above: Performed By: #### C DP, BMP, PT #### [facility] [address] [place] [address] Educational Advisor: Dylan Tejeda MD GFR,non Amer >60 Normal >60 [facility] Comment on above: Performed By: #### C DP, BMP, PT #### [facility] [address] [place] [address] Educational Advisor: Dyaln Tejeda MD Glucose [Mass/Vol] 95 mg/dL Normal 70-99 [facility] Comment on above: Performed By: #### C DP, BMP, PT #### [facility] [address] [place] [id number] Educational Advisor: Dylan Tejeda MD Potassium [Moles/Vol] 3.4 mmol/L Low 3.7-5.3 [facility] Comment on above: Performed By: #### C DONOVAN HOPPER, PT #### [facility] [address] [place] [address] [address] [phone] Educational Advisor: Dylan Tejeda MD Sodium [Moles/Vol] 137 mmol/L Normal 135-144 [facility] Comment on above: Performed By: #### C DONOVAN HOPPER, PT #### [facility] [address] [place] [address] [address] [place] [phone] Educational Advisor: Dylan Tejeda MD Staging: Normal [facility] Comment on above: Result Comment: Stag e 1: Some kidney damage normal GFR Stage 2: Mild kidney damage GFR 60-89 Stage 3: Moderate kidney damage GFR 30-59 Stage 4: Severe kidney damage GFR 15-29 Stage 5: Severe kidney damage GFR <15 ESRD - chronic treatment by dialysis or transplant Performed By: #### C DONOVAN HOPPER, PT #### [facility] [address] [place] [address] [place] [phone] Educational Advisor: Dylan Tejeda MD Urea nitrogen [Mass/Vol] 8 mg/dL Normal 6-20 [facility] Comment on above: Performed By: #### C DONOAVN HOPPER, PT #### [facility] [address] [place] [address] [address] [phone] Educational Advisor: Dylan Tejeda MD CBC with Auto Differentialon 03-15-2022 Absolute Eos # 0.12 [facility] Absolute Immature Granulocyte 0.09 [facility] Absolute Lymph # 2.68 [facility] Absolute [place] # 0.92 [facility] Basophils Absolute [facility] Basophils/100 WBC (Bld) 0 % 0 - 2 % [facility] Eosinophils/100 WBC (Bld) 1 % 1 - 4 % [facility] Hematocrit (Bld) [Volume fraction] 37.0 % 36.3 - 47.1 % [facility] Hemoglobin (Bld) [Mass/Vol] 12.4 g/dL 11.9 - 15.1 g/dL [facility] Immature granulocytes/100 WBC (Bld) 1 % High 0 [facility] Interpretation and review of laboratory results Abnormal [facility] Lymphocytes/100 WBC (Bld) 19 % Low 24 - 43 % [facility] MCH (RBC) [Entitic mass] 30.1 pg 25.2 - 33.5 pg [facility] MCHC (RBC) [Mass/Vol] 33.5 g/dL 28.4 - 34.8 g/dL [facility] MCV (RBC) [Entitic vol] 89.8 fL 82.6 - 102.9 fL [facility] Monocytes/100 WBC (Bld) 7 % 3 - 12 % [facility] NRBC Automated 0.0 0.0 per 100 WBC [facility] Platelet distribution width (Bld) [Ratio] 12.2 % 11.8 - 14.4 % [facility] Platelet mean volume (Bld) [Entitic vol] 9.2 fL 8.1 - 13.5 fL [facility] Platelets (Bld) [#/Vol] 253 10*3/uL [facility] RBC (Bld) [#/Vol] 4.12 10*6/uL 3.95 - 5.1 1 m/uL [facility] Segmented neutrophils/100 WBC (Bld) 72 % High 36 - 65 % [facility] Segs Absolute 10.05 High [facility] WBC (Bld) [#/Vol] 13.9 10*3/uL High [facility] CBC with Diffon 03-15-2022 Abs. Basophil <0.03 Normal 0.00-0.20 [facility] Comment on above: Performed By: #### C DP, BMP, PT #### [facility] [address] [place] [address] Educational Advisor: Dylan Tejeda MD Abs.Imm.Granulocyte 0.09 k/uL Normal 0.00-0.30 [facility] Comment on above: Performed By: #### C DONOVAN HOPPER, PT #### [address] [place], [place] [address] Educational Advisor: Dylan Tejeda MD Abs.Neutrophil (Seg) 10.05 k/uL High 1.50-8.10 [facility] Comment on above: Performed By: #### C DONOVAN HOPPER, PT #### [address] [place], [place] [address] Educational Advisor: Dylan Tejeda MD Basophils/100 WBC (Bld) 0 % Normal 0-2 [facility] Comment on above: Performed By: #### C DONOVAN HOPPER, PT #### [address] [place], [facility] Educational Advisor: Dylan Tejeda MD Eosinophils (Bld) [#/Vol] 0.12 10*3/uL Normal 0.00-0.44 [facility] Comment on above: Performed By: #### C DONOVAN HOPPER, PT #### [address] [place], [place] [address] Educational Advisor: Dylan Tejeda MD Eosinophils/100 WBC (Bld) 1 % Normal 1-4 [facility] Comment on above: Performed By: #### C DONOVAN HOPPER, PT #### [address] [place], [place] [address] Educational Advisor: Dylan Tejeda MD Erythrocyte distribution width (RBC) [Ratio] 12.2 % Normal 11.8-14.4 [facility] Comment on above: Performed By: #### C DONOVAN HOPPER, PT #### [address] [place], [facility]83 Educational Advisor: Dylan Tejeda MD Hematocrit (Bld) [Volume fraction] 37.0 % Normal 36.3-47.1 [facility] Comment on above: Performed By: #### C WARD BMP, PT #### [facility] [address] [place] [address] [address], [place] [address] Educational Advisor: Dylan Tejeda MD Hemoglobin (Bld) [Mass/Vol] 12.4 g/dL Normal 11.9-15.1 [facility] Comment on above: Performed By: #### C WARD BMP, PT #### [address] [place], [place] [address] Educational Advisor: Dylan Tejeda MD Immature granulocytes/100 WBC (Bld) 1 % High 0 [facility] Comment on above: Performed By: #### C DONOVAN HOPPER, PT #### [address] [place], [facility]83 Educational Advisor: Dylan Tejeda MD Lymphocytes (Bld) [#/Vol] 2.68 10*3/uL Normal 1.10-3.70 [facility] Comment on above: Performed By: #### C DONOVAN HOPPER, PT #### [address] [place], [place] [address] Educational Advisor: Dylan Tejeda MD Lymphocytes/100 WBC (Bld) 19 % Low 24-43 [facility] Comment on above: Performed By: #### C DONOVAN HOPPER, PT #### [address] [place], [facility]83 Educational Advisor: Dylan Tejeda MD MCH (RBC) [Entitic mass] 30.1 pg Normal 25.2-33.5 [facility] Comment on above: Performed By: #### C DONOVAN HOPPER, PT #### [address] [place] [address] Educational Advisor: Dylan Tejeda MD MCHC (RBC) [Mass/Vol] 33.5 g/dL Normal 28.4-34.8 [facility] Comment on above: Performed By: #### C DP, BMP, PT #### [facility] [address] [place], [place] [phone] Educational Advisor: Dylan Tejeda MD MCV (RBC) [Entitic vol] 89.8 fL Normal 82.6-102.9 [facility] Comment on above: Performed By: #### C DP, BMP, PT #### [facility] [address] [place], [facility]83 Educational Advisor: Dylan Tejeda MD Monocytes (Bld) [#/Vol] 0.92 10*3/uL Normal 0.10-1.20 [facility] Comment on above: Performed By: #### C DP, BMP, PT #### [address] [place], [facility]83 Educational Advisor: Dylan Tejeda MD Monocytes/100 WBC (Bld) 7 % Normal 3-12 [facility] Comment on above: Performed By: #### C DP, BMP, PT #### [address] [place], [facility]83 Educational Advisor: Dylan Tejeda MD Neutrophil (Seg) 72 % High 36-65 [facility] Comment on above: Performed By: #### C DP, BMP, PT #### [address] [place], [facility]83 Educational Advisor: Dylan Tejeda MD NRBC Automated 0.0 per 100 WBC Normal 0.0 [facility] Comment on above: Performed By: #### C DP, BMP, PT #### [address] [place], [facility]83 Educational Advisor: Dylan Tejeda MD Platelet mean volume (Bld) [Entitic vol] 9.2 fL Normal 8.1-13.5 [facility] Comment on above: Performed By: #### C DP, BMP, PT #### [address] [place] [id number] Educational Advisor: Dylan Tejeda MD Platelets (Bld) [#/Vol] 253 10*3/uL Normal 138-453 [facility] Comment on above: Performed By: #### C DONOVAN HOPPER, PT #### [facility] [address] [place], [place] [id number] Educational Advisor: Dylan Tejeda MD RBC (Bld) [#/Vol] 4.12 10*6/uL Normal 3.95-5.11 [facility] Comment on above: Performed By: #### C DONOVAN HOPPER, PT #### [facility] [address] [place], [place] [phone] Educational Advisor: Dylan Tejeda MD WBC (Bld) [#/Vol] 13.9 10*3/uL High 3.5-11.3 [facility] Comment on above: Performed By: #### C DONOVAN HOPPER, PT #### [facility] [address] [place], [place] [phone] Educational Advisor: Dylan Tejeda MD Laboratory - Chemistry and C hemistry - challengeon 03-15-2022 GFR/1.73 sq M.predicted MDRD (S/P/Bld) [Vol rate/Area] [facility] Comment on above: Average GFR for 30-3 9 years old: 107 mL/min/1.73sq m Chronic Kidney Disease: <60 mL/min/1.73sq m Kidney failure: <15 mL/min/1.73sq m eGFR calculated using average adult body mass. Additional eGFR calculator available at: http://www.[employer].com/multiple_crcl_2012.htm Stage 1: Some kidney damage normal GFR Stage 2: Mild kidney damage GFR 60-89 Stage 3: Moderate kidney damage GFR 30-59 Stage 4: Severe kidney damage GFR 15-29 Stage 5: Severe kidney damage GFR <15 ESRD - chronic treatment by dialysis or transplant Microscopic Urinalysison Epithelial Cells UA 0 TO 2 [facility] RBC, UA 0 TO 2 [facility] WBC, UA 0 TO 2 [facility] PTon 03-15-2022 INR Coag (PPP) [Relative time] 1.0 {INR} Normal [facility] Comment on above: Result Comment: Non-therapeutic Range: INR = 0.9-1.2 Therapeutic Range: Moderate Anticoagulant Intensity: INR = 2.0-3.0 High Anticoagulant Intensity: INR = 2.5-3.5 Performed By: #### C DP, BMP, PT #### [facility] [address] [place] [address] Educational Advisor: Dylan Tejeda MD PT Coag (PPP) [Time] 12.9 s Normal 11.5-14.2 [facility] Comment on above: Performed By: #### C DP, BMP, PT #### [facility] [address] [place] [address] Educational Advisor: Dylan Tejeda MD Protime-INRon 03-15-2022 INR Coag (Bld) [Relative time] 1.0 {INR} [facility] Comment on above: Non-therapeutic Range: INR = 0.9-1.2 Therapeutic Range: Moderate Anticoagulant Intensity: INR = 2.0-3.0 High Anticoagulant Intensity: INR = 2.5-3.5 PT Coag (PPP) [Time] 12.9 s [facility] UA w/Reflex Cultureon 2021 Bilirubin, SemiQt,Ur Negative Normal NEG [facility] Comment on above: Performed By: #### U AX, UMICAO #### [facility] [address] [place] [address] Educational Advisor: Dylan Tejeda MD Blood, Urine Negative Normal NEG [facility] Comment on above: Performed By: #### U AX, UMICAO #### [facility] [address] [place] [address] Educational Advisor: Dylan Tejeda MD Clarity (U) Clear Normal CLEAR [facility] Comment on above: Performed By: #### U AX, UMICAO #### [facility] [address] [place] [address] [place], [place] [phone] Educational Advisor: Dylan Tejeda MD Color (U) Yellow Normal YEL [facility] Comment on above: Performed By: #### U AX, UMICAO #### [facility] [address] [place], [place] [phone] Educational Advisor: Dylan Tejeda MD Glucose Ql (U) Negative Normal NEG [facility] Comment on above: Performed By: #### U AX, UMICAO #### [facility] [address] [place] [address] [place], [place] [phone] Educational Advisor: Dylan Tejeda MD Ketones Ql (U) Negative Normal NEG [facility] Comment on above: Performed By: #### U AX, UMICAO #### [facility] [address] [place] [address] [place], [place] [phone] Educational Advisor: Dylan Tejeda MD Leukocyte esterase Test strip Ql (U) TRACE Abnormal NEG [facility] Comment on above: Performed By: #### U AX, UMICAO #### [address] [place] [address] Educational Advisor: Dylan Tejeda MD Nitrite,Ur Negative Normal NEG [facility] Comment on above: Performed By: #### U AX, UMICAO #### [facility] [address] [place] [address] [place], [place] [phone] Educational Advisor: Dylan Tejeda MD PH,Ur 6.0 Normal 5.0-9.0 [facility] Comment on above: Performed By: #### U AX, UMICAO #### [facility] [address] [place], [place] [phone] Educational Advisor: Dylan Tejeda MD Protein Ql (U) Negative Normal NEG [facility] Comment on above: Performed By: #### U AX, UMICAO #### [facility] [address] [place] [address] Educational Advisor: Dylan Tejeda MD Spec. [place],Ur 1.010 Normal 1.010-1.020 [facility] Comment on above: Performed By: #### U AX, NUBIAICAO #### [facility] [address] [place] [address] Educational Advisor: Dylan Tejeda MD Urobilinogen,Ur Normal Normal NORM [facility] Comment on above: Performed By: #### U AXNUBIAICAO #### [facility] [address] [place] [address] Educational Advisor: Dylan Tejeda MD Urinalysis with Reflex to Cu ltureon 03-15-2022 Bilirubin Urine Negative NEGATIVE [facility] Color, UA Yellow Yellow [facility] Glucose, Ur Negative NEGATIVE [facility] Interpretation and review of laboratory results Abnormal [facility] Ketones Ql (U) Negative NEGATIVE [facility] Leukocyte esterase Test strip Ql (U) TRACE Abnormal NEGATIVE [facility] Nitrite, Urine Negative NEGATIVE [facility] pH, UA 6.0 5 - 9 [facility] Protein, UA Negative NEGATIVE [facility] Specific [place], UA 1.010 1.01 - 1.02 [facility] Turbidity UA Clear Clear [facility] Urine Hgb Negative NEGATIVE [facility] Urobilinogen, Urine Normal Normal [facility] Urinalysis,Microon 2 Epithelial cells LM Ql (Urine sed) 0 TO 2 Normal 0-25 [facility] Comment on above: Performed By: #### U AX, UMICAO #### [facility] [address] [place] [address] Educational Advisor: Dylan Tejeda MD Urine RBC's 0 TO 2 Normal 0-2 [facility] Comment on above: Performed By: #### U AX, UMICAO #### [facility] [address] [place] [address] Educational Advisor: Dylan Tejeda MD Urine WBC's 0 TO 2 Normal 0-5 [facility] Comment on above: Performed By: #### U AX, UMICAO #### [facility] [address] [place] [address] Educational Advisor: Dylan Tejeda MD US PREG ANATOMY SINGLEon US PREG ANATOMY SINGLE EXAMINATION: US P REG ANATOMY SINGLE HISTORY: screening COMPARISON: No relevant comparison available. TECHNIQUE: Transabdominal sonographic examination was performed for obstetrical and evaluation. FINDINGS: Number: 1 Heart Rate: 133.7 bpm H.B. /min Amniotic Fluid Volume: Subjectively normal Placental Location: ANTERIOR with lower margin 6.6 cm from os. Cervix Length: 3.7 cm, closed. ANATOMY: Normal Structures -cerebellum, choroid plexus, cisterna magna, lateral cerebral ventricles, orbits, midline falx, hard palate, four-chamber heart, RVOT, LVOT, stomach, kidneys, bladder, umbilical cord insertion into abdomen, three-vessel cord, cervical spine, thoracic spine, lumbar spine, sacral spine, right upper extremity, left upper extremity, right lower extremity, left lower extremity. SUBOPTIMALLY SEEN: None ABNORMALITIES: Echogenic focus within left ventricle of the heart. BIOMETRY: BPD: 4.7 cm 20 weeks 1 days HC: 17.6 cm 20 weeks 1 days AC: 14.9 cm 20 weeks 1 days FL: 3.2 cm 20 weeks 0 days EFW:330.9 grams; 42% FL/AC: 21.5 FL/BPD: 68.5 HC/AC: 1.2 GESTATIONAL AGE: Age by EDC: 20 weeks 1 days ASHLEY by EDC: 07/20/2022 Age by current US: 20 weeks 1 days ASHLEY by current US: 07/20/2022 IMPRESSION: 1. Single live intrauterine with growth detailed above. 2. Echogenic focus within the left cardiac ventricle; nonspecific but can be associated with the trisomy syndromes. No additional abnormality identified. Electronically authenticated by: GRISELDA COLEMAN Date: 2022-03-04 16:17 Normal [facility] PROGESTERONEon 01-07-2021 PROGESTERONE 0.4 ng/mL Normal [facility] Comment on above: Result Comment: FEMALES: 1st Tri: 4.7-50.7 ng/ml 2nd Tri: 19.4-45.3 ng/ml MENSTRUATING FEMALES: Follicular: 0.3-1.5 ng/ml Mid Luteal: 5.2-18.6 ng/ml Post [place]: <0.1-0.8 ng/ml Performed at [facility] [address] [place] [address] [facility] [employer] [employer] [address] [place] [address] CLIA No. [id number] CAP Accreditation No. [id number] Parts Fabricator: Eliezer Fierro M.D. PROGESTERONEon 12-03-2020 PROGESTERONE 0.8 ng/mL Normal [facility] Comment on above: Result Comment: FEMALES: 1st Tri: 4.7-50.7 ng/ml 2nd Tri: 19.4-45.3 ng/ml MENSTRUATING FEMALES: Follicular: 0.3-1.5 ng/ml Mid Luteal: 5.2-18.6 ng/ml Post [place]: <0.1-0.8 ng/ml Performed at [facility] [address] [place] [address] Pathology [employer] [address] [place] [address] CLIA No. [id number] CAP Accreditation No. [id number] Parts Fabricator: Eliezer Fierro M.D. PROGESTERONEon 11-01-2020 PROGESTERONE 0.7 ng/mL Normal [facility] Comment on above: Result Comment: FEMALES: 1st Tri: 4.7-50.7 ng/ml 2nd Tri: 19.4-45.3 ng/ml MENSTRUATING FEMALES: Follicular: 0.3-1.5 ng/ml Mid Luteal: 5.2-18.6 ng/ml Post [place]: <0.1-0.8 ng/ml Performed at [facility] [address] [place] [id number] [facility] [employer] [address] [place] [address] CLIA No. [id number] CAP Accreditation No. [id number] Parts Fabricator: Eliezer Fierro M.D. PROGESTERONEon 09-20-2020 PROGESTERONE 0.8 ng/mL Normal [facility] [employer] [facility] Comment on above: Result Comment: FEMALES: 1st Tri: 4.7-50.7 ng/ml 2nd Tri: 19.4-45.3 ng/ml MENSTRUATING FEMALES: Follicular: 0.3-1.5 ng/ml Mid Luteal: 5.2-18.6 ng/ml Post [place]: <0.1-0.8 ng/ml Performed at [facility] [address] [place] [address] Pathology [employer] [address] [place] [address] CLIA No. [id number] CAP Accreditation No. [id number] Parts Fabricator: Eliezer Fierro M.D. Prolactinon 06-03-2020 Prolactin 17.53 ug/L 4.79 - 23.3 ug/L [place], [place] Comment on above: The presence of macr oprolactin may cause interference in female patients with various endocrinological diseases or during . TSH without Reflexon 020 TSH Qn 1.08 m[IU]/L [place] Vital Signs Date Time Vital Sign [facility] 04-08-2025 08:33-0400 Body mass index (BMI) [Ratio] 36 kg/m2 Vivienne Duong DO Work Phone: [facility] 04-08-2025 08:33-0400 Body weight 110.59 kg Vivienne Duong DO Work Phone: [facility] 04-08-2025 08:33-0400 Diastolic blood pressure 64 mm[Hg] Vivienne Duong DO Work Phone: [facility] 04-08-2025 08:33-0400 Systolic blood pressure 110 mm[Hg] Vivienne Udong DO Work Phone: [facility] 04-04-2024 09:06-0400 Body mass index (BMI) [Ratio] 33.88 kg/m2 Kaykay BAUMANN Work Phone: [facility] 04-04-2024 09:06-0400 Body weight 104.06 kg Kaykay BAUMANN Work Phone: [facility] 04-04-2024 09:06-0400 Diastolic blood pressure 74 mm[Hg] Kaykay BAUMANN Work Phone: [facility] 04-04-2024 09:06-0400 Systolic blood pressure 118 mm[Hg] Kaykay BAUMANN Work Phone: [facility] 03-16-2022 09:42-0400 Body temperature 98.29 [degF] Stanislaw Saha DO Work Phone: [facility] [employer] 03-16-2022 09:42-0400 Diastolic blood pressure 61 mm[Hg] Stanislaw Saha DO Work Phone: [facility] [employer] 03-16-2022 09:42-0400 Heart rate 90 /min Stanislaw Saha DO Work Phone: [facility] [employer] 03-16-2022 09:42-0400 Respiratory rate 16 /min Stanislaw Saha DO Work Phone: [facility] [employer] 03-16-2022 09:42-0400 SaO2% (BldA) [Mass fraction] 97 % Stanislaw Saha DO Work Phone: [employer] 03-16-2022 09:42-0400 Systolic blood pressure 116 mm[Hg] Stanislaw Saha DO Work Phone: [facility] [employer] 03-16-2022 02:41-0400 Body height 175.3 cm Stanislaw Saha DO Work Phone: [employer] 03-16-2022 01:02-0400 Body mass index (BMI) [Ratio] 31.75 kg/m2 Stanislaw Saha DO Work Phone: [employer] 03-16-2022 01:02-0400 Body weight 97.52 kg Stanislaw Saha DO Work Phone: [facility] [employer] 03-15-2022 23:30-0400 Diastolic blood pressure 54 mm[Hg] Ruel Carlson DO Work Phone: [employer] 03-15-2022 23:30-0400 Heart rate 97 /min Ruel Clarosse DO Work Phone: [employer] 03-15-2022 23:30-0400 Respiratory rate 20 /min Ruel Clarosse DO Work Phone: [employer] 03-15-2022 23:30-0400 SaO2% (BldA) [Mass fraction] 100 % Ruel Jacquelyn DO Work Phone: [employer] 03-15-2022 23:30-0400 Systolic blood pressure 133 mm[Hg] Ruel Clarosse DO Work Phone: [employer] 03-15-2022 19:15-0400 Body mass index (BMI) [Ratio] 31.75 kg/m2 Ruel Clarosse DO Work Phone: [employer] 03-15-2022 19:15-0400 Body temperature 98.01 [degF] Ruel Clarosse DO Work Phone: [employer] 03-15-2022 19:15-0400 Body weight 97.52 kg Ruel Jacquelyn DO Work Phone: [facility] Encounters Encounter Date Encounter Type Care Provider Facility Start: 04-08-2025 End: 04-08-2025 Bamboo flowsheet Vivienne Duong DO Work Phone: [facility] Start: 04-08-2025 End: 04-08-2025 Bamboo flowsheet Vivienne Duong DO Work Phone: [facility] Start: 04-08-2025 End: 04-08-2025 Patient encounter procedure Vivienne Duong DO Work Phone: [facility] Work Phone: Start: 04-08-2025 End: 04-08-2025 Periodic preventive med est patient 18-39 yrs Vivienne Duong DO Work Phone: [facility] Comment on above: Well woman exam with routine gynecological exam Start: 04-01-2025 End: 04-01-2025 ambulatory Anoop Serna MD Facility:[facility] Start: 03-19-2025 End: 03-19-2025 ambulatory Anoop Serna MD Facility:[facility] Start: 03-19-2025 End: 03-19-2025 ambulatory Luis A Peralta MD Facility:[facility] Start: 03-05-2025 End: 03-05-2025 ambulatory Anoop Serna MD Facility:[facility] Start: 04-04-2024 End: 04-04-2024 Bamboo flowsheet Kaykay BAUMANN Work Phone: [facility] Start: 04-04-2024 End: 04-10-2024 Bamboo flowsheet Kaykay BAUMANN Work Phone: [facility] Start: 04-04-2024 End: 04-10-2024 Clinisync Result Encounter Kaykay BAUMANN Work Phone: [facility] Unsolicited Start: 04-04-2024 End: 04-04-2024 Patient encounter procedure Kaykay BAUMANN Work Phone: [facility] Work Phone: Start: 04-04-2024 End: 04-04-2024 Periodic preventive med est patient 18-39 yrs Kaykay BAUMANN Work Phone: [facility] Comment on above: Well woman exam with routine gynecological exam Start: 07-18-2022 End: 07-18-[address] VIVIENNE WATTERS Facility:[facility] Start: 07-13-2022 End: 07-14-2022 Evaluation and management of inpatient DR ELIZABETH OBRIEN Facility:[facility] Start: 06-22-2022 End: 06-22-[address] VIVIENNE WTATERS Facility:[facility] Start: 04-02-[address] VIVIENNE WATTERS Facility :[facility] Start: 03-16-2022 End: 03-16-2022 Evaluation and management of inpatient [facility] Start: 03-16-2022 End: 03-16-2022 Evaluation and management of inpatient Stanislaw Saha DO Work Phone: [facility]Med Surg Comment on above: Transient weakness o f right lower extremity (Primary Dx); Aphasia Start: 03-15-2022 End: 03-16-2022 Emergency department patient visit [facility] Start: 03-15-2022 End: 03-15-2022 Emergency department patient visit [facility] Jacquelyn GIL Work Phone: [facility] ED Comment on above: TIA (transient ische beto attack) (Primary Dx) Start: 03-03-2022 End: 03-04-[address] VIVIENNE WATTERS Facility:[facility] Start: 06-02-2020 End: 06-02-2020 Subsequent [facility] Start: 06-01-2020 End: 06-01-2020 Subsequent hospital visit by physician Ruel [facility] Comment on above: Other fatigue; Weight gain finding Procedures Date Procedure Procedure Detail Performing Clinician Start: 04-04-2024 IGP,APTIMA HPV,AGE GDLN Kaykay BAUMANN Work Phone: Start: 07-13-2022 Delivery of Products of Conception, External Approach DR VIVIENNE WATTERS Start: 07-13-2022 Drainage of Amniotic Fluid, Therapeutic from Products of Conception, Via Natural or Artificial Opening DR VIVIENNE WATTERS Start: 07-13-2022 Introduction of Othe r Hormone into Peripheral Vein, Percutaneous Approach DR VIVIENNE WATTERS Start: 07-13-2022 Repair Perineum Skin , External Approach DR VIVIENNE WATTERS Start: 03-16-2022 Mra head w/o contrst material Michael Mohan MD Work Phone: Start: 03-16-2022 Lipid panel Sunil Redman MD Work Phone: Start: 03-15-2022 Basic metabolic pane l calcium total Sunny A Hammuda PA-C Work Phone: Start: 03-15-2022 Urinalysis microscop ic only Sunny A Hammuda PA-C Work Phone: Start: 03-15-2022 Urnls dip stick/tabl et rgnt auto w/o microscopy Sunny A Hammuda PA-C Work Phone: Start: 06-02-2020 Assay of prolactin Kristynrosaline cardoso Camilo Fulc[employer] Work Phone: Start: 06-02-2020 Assay of thyroid stimulating hormone tsh Adelina Ballard Work Phone: Start: 06-01-2020 Microscopic observat ion [Identifier] in Cervix by Cyto stain Ruel Carlson DO Work Phone: Plan of Treatment Date Care Activity Detail Author Start: 01-30-2028 DTaP/Tdap/Td vaccine (2 - Td or Tdap) DTaP/Tdap/Td vaccine (2 - Td or Tdap) [facility] Start: 01-30-2028 DTaP/Tdap/Td vaccine (2 - Td) DTaP/Tdap/Td vaccine (2 - Td) [facility] [place], [place] Start: 04-14-2026 End: 04-14-2026 Patient encounter procedure 04/14/2026 8:30 AM EDT Procedure Visit [facility] [address] [place] [address] [place] [id number] Vivienne Watters DO [address] [place] [address] [facility] [place] [facility] Start: 04-08-2025 End: 04-08-2025 Patient encounter procedure [facility] Comment on above: Arrived Start: 04-04-2024 End: 04-04-2024 Patient encounter procedure 04/04/2024 9:00 AM EDT Office Visit [facility] [address] [place] [id number] Kaykay Mcdowell PA [address] [place] [address] Arrived [facility] Comment on above: Arrived Start: 06-01-2023 Screening for malign ant neoplasm of cervix [facility] Start: 04-07-2022 Influenza vaccination Flu vaccine (# 1) [facility] Start: 06-03-2021 End: 06-03-2021 Office Visit 06/03/2021 Office Visit Obstetrics and Gynecology Adelina Ballard APRN - [address] [place] [address] [facility] Start: 06-01-2021 Depression Screen Depression Screen [facility] Start: 2021 Screening for malign ant neoplasm of cervix HPV (without or with Pap) [facility] Start: 04-07-2020 Influenza vaccination Flu vaccine (# 1) [place], [place] Start: 12-07-2019 Screening for malign ant neoplasm of cervix Cervical cancer screen [place], [place] Start: 01-05-1992 Varicella vaccine (1 of 2 - 2-dose childhood series) Varicella vaccine (1 of 2 - 2-dose childhood series) [facility] Start: 1991 COVID-19 Vaccine (#1) COVID-19 Vacci ne (#1) [facility] Cytology Cervical or vaginal smear or scraping study Pap Smear Pathology and Cytology Routine Well woman exam with routine gynecological exam Ordered: 04/04/2024 [facility] [employer] Work Phone: Comment on above: Ordered: 04/04/2024 Cytology Cervical or vaginal smear or scraping study Pap Smear Pathology and Cytology Routine Well woman exam with routine gynecological exam Ordered: 04/08/2025 [facility] Work Phone: Comment on above: Ordered: 04/08/2025 End: 06-01-2020 Cytopathology procedure, preparation of smear, genital source PAP SMEAR Lab Routine Other fatigue Weight gain finding 1 Occurrences starting 06/01/2020 until 06/01/2020 [place], [place] Comment on above: 1 Occurrences starti ng 06/01/2020 until 06/01/2020 End: 06-02-2020 Follicle Stimulating Hormone Follicle Stimulating Hormone Lab Routine Once for 1 Occurrences starting 06/02/2020 until 06/02/2020 [place] Comment on above: Once for 1 Occurrenc es starting 06/02/2020 until 06/02/2020 Follicle Stimulating Hormone Follicle Stimulating Hormone Lab Routine 06/02/2020 4:49 PM EDT [place] End: 06-02-2020 Free T4 [Mass/Vol] T4, Free Lab Routine Once for 1 Occurrences starting 06/02/2020 until 06/02/2020 [place] Comment on above: Once for 1 Occurrenc es starting 06/02/2020 until 06/02/2020 Free T4 [Mass/Vol] T4, Free Lab Routine 06/02/2020 4:49 PM EDT [place] Human papilloma viru s DNA [Presence] in Unspecified specimen by Probe with amplification HPV DNA probe, amplified Microbiology Routine Well woman exam with routine gynecological exam Ordered: 04/04/2024 [facility] Comment on above: Ordered: 04/04/2024 Human papilloma viru s DNA [Presence] in Unspecified specimen by Probe with amplification HPV DNA probe, amplified Microbiology Routine Well woman exam with routine gynecological exam Ordered: 04/08/2025 [facility] Comment on above: Ordered: 04/08/2025 End: 06-02-2020 Luteinizing Hormone Luteinizing Hormone Lab Routine Once for 1 Occurrences starting 06/02/2020 until 06/02/2020 [place] Comment on above: Once for 1 Occurrenc es starting 06/02/2020 until 06/02/2020 Luteinizing Hormone Luteinizing Hormone Lab Routine 06/02/2020 4:49 PM EDT [place] Oxygen therapy [[facility]] Initiate Oxygen Therapy Protocol Respiratory Care Routine As Needed until discontinued starting 03/16/2022 [facility] [email or web address] Work Phone: Comment on above: As Needed until disc ontinued starting 03/16/2022 End: 06-02-2020 T3, Uptake T3, Uptake Lab Routine Once for 1 Occurrences starting 06/02/2020 until 06/02/2020 [place] Comment on above: Once for 1 Occurrenc es starting 06/02/2020 until 06/02/2020 T3, Uptake T3, Uptake Lab R outine 06/02/2020 4:49 PM EDT [place] End: 06-02-2020 T4 T4 Lab Routine Once for 1 Occurrences starting 06/02/2020 until 06/02/2020 [place] Comment on above: Once for 1 Occurrenc es starting 06/02/2020 until 06/02/2020 T4 T4 Lab Routine 06/02/2020 4:49 PM EDT [place] Immunizations Immunization Date Immunization Notes Care Provider Dmitri fink 03-17-2018 measles, mumps and r ubella virus vaccine [employer] [facility] [email or web address] 01-29-2018 tetanus toxoid, redu elisa diphtheria toxoid, and acellular pertussis vaccine, adsorbed [facility] Payers Date Payer Category [facility] [id number] 2020 Unknown [id number] 2020 Unknown [id number] 1991 Unknown [id number] [id number]. 173 1991 Unknown [id number] [id number]. 175 1991 Unknown [id number] [id number]. 593 1991 Unknown [id number] [id number]. 593 1991 Unknown [id number] [id number]. 593 1991 Unknown [id number] 2.16.840.1.267220.3.579.2. 593 1991 Unknown [id number] [id number]. 593 1991 Unknown [id number] 2.16.840.1.211753.3.579.2. 196 1991 Unknown [id number] [id number]. 196 1991 Unknown [id number] [id number]. 196 1991 Unknown [id number] [id number]. 196 1991 Unknown [id number] [id number]. 196 1959 Self-pay 1959 Unknown [id number] Social History Date Type Detail Facility Start: 06-01-2020 End: 12-22-2022 Tobacco smoking status [facility] Never smoker [place], [place] Start: 10-16-2014 End: 06-01-2020 Tobacco use and exposure Never used [place], [place] Start: 06-01-2020 End: 03-16-2022 Alcohol intake Current non-drinker of alcohol (finding) [place] Start: 10-19-2015 Alcohol Comment ocass. Carlie Vidal [place], [place] Start: 1990 Sex Assigned At Not on file [place] Start: 03-05-2022 End: 03-15-2022 Exposure to SARS-CoV-2 (event) Not sure [place], [place] Start: 03-15-2022 End: 04-08-2025 Alcohol intake [facility] [employer] Phone: Start: 10-27-2021 MARIO Brand [facility] [employer] Phone: Start: 03-27-2024 End: 04-08-2025 Alcoholic beverage intake Lifetime non-drinker (finding) [facility] Start: 06-16-2023 End: 04-08-2025 Tobacco use panel [facility] Start: 02-09-2023 Alcohol Comment caffeine: none [facility] Start: 1990 Sex assigned at Female N [facility] [place] [facility] Start: 02-06-2023 Gender identity Identifies as female gender (finding) [facility] Clinical Notes 03-16-2022 to 04-08-2025 Yissel Greene LPN - 04/08/2025 8:30 AM IBIS Fragoso - 04/04/2024 9:00 AM EDTHugo Nair PT - 03/16/2022 12:18 PM Burak Lehman OT - 03/16/2022 12:16 PM EDT Note Date & Type Note Facility 04-08-2025 History of Present illness Narrative Reason for Appointment: Patient ID: Konrad De Dios is a 35 y.o. female who presents for Well Women Visit Patient presents today for Annual Exam. MEDICATIONS Current Outpatient Medications Medication Instructions Levonorgestrel-Ethinyl Estrad (Tyblume) 0.1-20 MG-MCG chewable tablet 1 tablet, Oral, Daily ALLERGIES No Known Allergies PROBLEMS Active Ambulatory Problems Diagnosis Date Noted Migraine 01/15/2023 Supervision of normal ([facility]) 01/15/2023 6 weeks follow-up ([facility]) 01/15/2023 control counseling 01/15/2023 Resolved Ambulatory Problems Diagnosis Date Noted No Resolved Ambulatory Problems Past Medical History: Diagnosis Date Colon polyps Migraines Nonsmoker HISTORY PAST MEDICAL HISTORY SOCIAL HISTORY Past Medical History: Diagnosis Date Colon polyps Migraines Nonsmoker Social History Tobacco Use Smoking status: Never Smokeless tobacco: Not on file Substance Use Topics Alcohol use: Never Comment: caffeine: none Drug use: Never FAMILY HISTORY Family History Problem Relation Name Age of Onset No Known Problems Daughter SURGICAL HISTORY Past Surgical History: Procedure Laterality Date MR ANGIOGRAM HEAD WO IV CONTRAST 03/16/2022 MR ANGIOGRAM HEAD WO IV CONTRAST 03/16/2022 PAP SMEAR 12/13/2021 WNL REVIEW OF SYSTEMS Review of Systems: Review of Systems Constitutional: Negative. HENT: Negative. Eyes: Negative. Respiratory: Negative. Cardiovascular: Negative. Gastrointestinal: Negative. Genitourinary: Negative. Musculoskeletal: Negative. Skin: Negative. Neurological: Negative. All other systems reviewed and are negative. Hematological: Negative. Endocrine: Negative. Allergic/Immunologic: Negative. OBJECTIVE Objective: Physical Exam Constitutional: Appearance: Normal appearance. She is well-developed. Genitourinary: Vulva normal. Cardiovascular: Rate and Rhythm: Normal rate and regular rhythm. Pulmonary: Effort: Pulmonary effort is normal. Breath sounds: Normal breath sounds. Abdominal: General: Bowel sounds are normal. There is no distension. Palpations: Abdomen is soft. Tenderness: There is no abdominal tenderness. There is no guarding or rebound. Musculoskeletal: General: No swelling. Normal range of motion. Right lower leg: No edema. Left lower leg: No edema. Neurological: Mental Status: She is alert and oriented to person, place, and time. Skin: General: Skin is warm and dry. Psychiatric: Mood and Affect: Mood normal. Behavior: Behavior normal. Vitals and nursing note reviewed. 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 Vitals: Estimated body mass index is 36 kg/m as calculated from the following: Height as of 08/24/22: 5' 9 . Weight as of this encounter: 243 lb 12.8 oz. BP: 110/64 Patient's last menstrual period was 04/01/2025. ASSESSMENT & PLAN ICD-10-CM 1. Well woman exam with routine gynecological exam Z01.419 Pap Smear HPV DNA probe, amplified Orders Placed This Encounter Procedures HPV DNA probe, amplified Annual Wellness Exam: Patient presents today for routine annual exam. Patient states she has no current complaints. Patients vitals were reviewed and within normal limits. Growth and development is noted to be appropriate for age. Menstrual history is noted to be regular with no concerns reported. No mental health concerns was expressed. Pap Smear: Speculum was inserted into the vagina and pap was obtained without difficulty. HPV testing was performed per age guideline. Patient was advised that pap results could take anywhere from 7 to 10 days to receive and our office will reach out to the patient with those once we have them. Patient can also view results via [employer]. I reinforced importance of condom use for STI prevention. Patient declined cultures to be performed with today's visit. Breast Exam: Upon examination, clinical breast exam was noted to be normal. Patient was counseled on breast self-awareness, including the importance of knowing what is normal for her own breasts and promptly reporting any changes such as new lumps, skin dimpling, nipple discharge, or pain. Screening mammogram recommended annually beginning at age 40 or earlier if risk factors are present. Discussed signs and symptoms of breast cancer and when to seek medical attention. Answered all patient questions. Contraceptive Counseling (if applicable): Patient is currently using oral contraception as a form of contraceptive. Follow Up: Patient is to return to our office in one year for annual exam unless needed otherwise. Documented by Yissel Greene LPN on behalf of: Vivienne Watters DO documented in this encounter [facility] 03-19-2025 Note Clinical Information Procedure: Sigmoidoscopy Pre-operative diagnosis: Hemorrhage of anus and rectum SP Specimen A Sigmoid colon polyp Gross Description Received in formalin labeled 'sigmoid colon polyp' and consists of a large pink-red, glistening, rubbery, and pedunculated polyp measuring 2.3 x 2 x 1.9 cm. The base of the polyp is inked black. Sectioning reveals a pink-red, glistening and rubbery to friable cut surface. The specimen is submitted entirely in cassettes A1-A4. Microscopic Description Sections show colonic mucosa with adenomatous change that is negative for high grade glandular dysplasia or malignancy. In sections showing a polyp stalk, the lesion appears excised. Diagnosis Sigmoid colon polyp, biopsy: Tubulovillous adenoma (2.3 cm greatest diameter). [id number] Sowmya Amira Celis MD PhD (Electronically signed by) Verified: 03/21/25 13:31 [facility] Comment on above: Performed By: #### S [place] #### [facility] ([facility] [address] [place] [address] 03-19-2025 Note [facility] er Procedure Note [facility] ID: [id number] Indication for procedure: Patient is a 35-year-old female with rectal bleeding. Pre-operative Dx: Rectal bleeding Post-operative Dx: Sigmoid polyp Operation: Flexible sigmoidoscopy Surgeon: Kathryn Anesthesia: CIRO Gan CRNA Findings: Large pedunculated sigmoid polyp Specimens: Sigmoid polyp Complications: none Technique: Patient was brought to the endoscopy suite and attached to appropriate hemodynamic monitors. Time-out was performed and the patient was turned into left lateral decubitus position. Sedation was given and digital rectal exam was performed. Sphincter tone was normal. No anal canal or perianal lesions were appreciated. Endoscope was inserted and advanced to its full length. On insertion, large pedunculated polyp was seen at 30 cm in the sigmoid region. On withdrawal, no additional abnormalities were seen. The polyp was removed with a hot snare. Tattoo was placed just distal to the polyp. The polyp was extracted. The remainder the colon and rectum appeared unremarkable. Retroflexed view was also normal. Endoscope was straightened, rectal air was evacuated, and the endoscope was removed concluding the procedure. Impression: Large pedunculated sigmoid polyp Recommendation: Check biopsy Electronically signed by Luis A Peralta MD 03/19/25 14:11 EDT [facility] 03-05-2025 Note Chief Complaint Patient presents for EGD & colonoscopy consultation. History of Present Illness 35 year old female, patient of Dr. Serna Patient here to discuss EGD & colonoscopy. She has never had a prior EGD or colonoscopy. She c/o occasional dysphagia, esophageal spasms, acid reflux, nausea, vomiting, and blood in her stool. The blood in the stool is intermittent and bright red in color. Denies abdominal pain, diarrhea, or constipation. Symptoms have been ongoing for a couple of months. She is not currently taking PPI/H2. Appetite is good. States that she does not eat at night due to the heartburn. She has taken OTC medication for heartburn, but takes them PRN. She will also use Tums PRN. Denies abnormal weight loss. Review of Systems Constitutional: No fevers, chills, sweats, weight loss or weight gain Respiratory: No shortness of breath, cough Cardiovascular: No chest pain, palpitations, syncope, no angina, no atrial fibrillation Gastrointestinal: +See HPI Liver: No jaundice, hepatitis Genitourinary: No hematuria, no kidney problems Hematologic: Never been transfused, no bleeding disorders Neuro: Denies strokes, TIA, seizures As reviewed in the HPI. All other systems reviewed are negative or normal. Physical Exam Vitals & Measurements HR: 69 (Peripheral) BP: 136/86 HT: 175 cm WT: 104.32 kg (Estimated) BMI: 34.06 Gen: Awake, alert Lungs: non-labored respiration Perianal: No external lesions No masses on exam, normal tone Anal canal normal on anoscopy Assessment and Plan: Patient with reflux symptoms, no worrisome signs of dysphagia or odynophagia, no unexplained weight loss Symptoms completely controlled with [id number] proton pump inhibitor Advised that she should take 3 months of PPI, she plans to obtain this [id number] We also reviewed dietary and lifestyle changes to minimize reflux i.e. weight loss, avoiding big meals and eating late at night Minimizing greasy fried foods, alcohol Patient is also having rectal bleeding, anal canal normal We reviewed concerns, options We will schedule flexible sigmoidoscopy to evaluate Time Spent with the Patient I have personally spent 30 minutes on this date, directly related to today's patient visit, including pre and post visit work, for this date of service. Time listed does not include time spent on separately billable services. Problem List/Past Medical History Ongoing No chronic problems Procedure/Surgical History No prior procedures Medications Tyblume 100 mcg-20 mcg oral tablet, chewable, 1 tabs, Oral, Daily, on an empty stomach Allergies No Known Allergies Social History Alcohol Current, 1-2 times per year Substance Abuse Denies All Tobacco Never (less than 100 in lifetime) Use:. Family History Heart disease: Father. No known problems: Mother. Electronically signed by Luis A Peralta MD 03/05/25 15:04 EDT Electronically signed by Madai Costello 02/24/2025 14:10 EDT Electronically signed by Elda Hewitt PA-C 03/06/2025 07:31 EDT [facility] 02-20-2025 Note Patient Education Ma terials Name: Konrad De Dios Current Date: 02/20/2025 12:14:08 [facility] [place] : 1990 The following sheet(s) are the Patient Education Leaflets for Konrad De Dios Gastroenterology Upper GI Endoscopy An upper GI endoscopy lets your healthcare provider look at the first part of your gastrointestinal (GI) tract with an endoscope. This is a thin tube with a camera and a light at the end. The endoscope is put into your throat and advanced down the esophagus. The esophagus, stomach, and the first part of the small intestine (the duodenum) make up the upper GI tract.? During endoscopy, a long, flexible tube is used to view the inside of your upper GI tract. Before the test Follow these and any other instructions you're given before your endoscopy. If you don?t follow the healthcare provider?s instructions carefully, the test may need to be canceled or done over: ?Follow any directions you're given for not eating or drinking before your test. In some cases, you may be able to take medicines with sips of water until 2 hours before the test. Talk with your provider about this.? ?Bring your X-rays and any other test results you have. ?Because you will be sedated, arrange for a trusted adult to drive you home after the exam. ?Tell your provider before the exam if you're taking any medicines. This includes any lfxz-nrh-ylukrqk and prescription medicines, vitamins, herbs, and supplements. Some medicines may be adjusted or stopped before the test. Don't stop any medicine unless directed by your provider. ?Tell your provider if you have any health problems. The procedure Here is what to expect: ?You will lie on the endoscopy table. People often lie on their left side. ?You will be placed on a heart monitor and given oxygen. ?Your throat may be numbed with a spray or gargle. You're given medicine through an IV (intravenous) line placed in your hand or arm. These medicines will help you relax and stay comfortable. You may be awake and drowsy or asleep during the test. ?The healthcare provider will put the endoscope in your mouth and down your esophagus.?This tube is thinner than most pieces of food that you swallow. It won't affect your breathing. The medicine helps keep you from gagging. ?Air is put into your GI tract to expand it. It can make you burp. ?During the procedure, the healthcare provider can take tissue samples (biopsies) and remove abnormalities, such as small bumps or growths (polyps). The provider can also treat abnormalities using tiny tools placed through the endoscope. You won't feel this.? ?The endoscope sends images of your upper GI tract to a video screen. If you're awake, you may be able to look at the images. After the procedure ?After the procedure is done, you'll rest and be monitored for a time (anywhere from 1 hour after the test to overnight, depending on complexity). ?An adult must drive you home. You should not drive for the remainder of the day or longer if recommended by your healthcare provider. ?You may be tired the rest of the day. ?You may feel gassy or crampy for a few hours. You may have a sore throat. This should improve in 1 or 2 days. ?Do not eat or drink until the numbing medicine has worn off and you are able to swallow without gagging. ?Start with a soft diet as advised by your healthcare team. A soft diet is food that is well tolerated and easy to swallow and digest. Examples include soup, eggs, pudding, and applesauce. Advance your diet to other items if you are tolerating soft foods well and once the soreness improves. To stay hydrated, drink plenty of fluids unless your healthcare team has told you not to. Risks Risks of upper endoscopy include: ?A reaction to the sedative, including breathing or heart problems ?A perforation (or hole) in the lining of your upper GI tract ?Bleeding (usually minor if it occurs) When to call your healthcare provider Call your healthcare provider right away if you have: ?A firm or distended belly ?Trouble swallowing or severe sore throat ?Crunching sensation under the skin around the neck ?Black or tarry stools, or blood in your stool ?Fever of 100.4?F (38?C) or higher, or as directed by your healthcare provider ?Pain in your belly that is bad or doesn't go away ?Upset stomach and vomiting, or vomiting blood or black materials ? [employer]. All rights reserved. This information is not intended as a substitute for professional medical care. Always follow your healthcare professional's instructions. Radiology Colonoscopy Colonoscopy?is a test to view the inside of your lower digestive tract (colon and rectum).?Sometimes it can show the last part of the small intestine (ileum).?During the test, small pieces of tissue may be removed for testing. This is called a biopsy. Small growths, such as polyps, may be removed.? (Inserted Image. (more content not included)... [facility] 04-04-2024 History of Present illness Narrative Reason for Appointment: Patient ID: Konrad De Dios is a 34 y.o. female who presents for Well Women Visit Patient presents today for Annual Exam. MEDICATIONS Current Outpatient Medications Medication Instructions drospirenone-ethinyl estradiol (Ocella) 3-0.03 MG tablet Every 24 hours Eyamlzel-Rgx-Kb-FA (, w/Iron & FA,) 27-0.8 MG tablet Every 24 hours ALLERGIES No Known Allergies PROBLEMS Active Ambulatory Problems Diagnosis Date Noted Migraine (CMS/HCC) 01/15/2023 Supervision of normal 01/15/2023 6 weeks follow-up 01/15/2023 control counseling 01/15/2023 Resolved Ambulatory Problems Diagnosis Date Noted No Resolved Ambulatory Problems Past Medical History: Diagnosis Date Migraines (CMS/HCC) Nonsmoker HISTORY PAST MEDICAL HISTORY SOCIAL HISTORY Past Medical History: Diagnosis Date Migraines (CMS/HCC) Nonsmoker Social History Tobacco Use Smoking status: Never Smokeless tobacco: Not on file Substance Use Topics Alcohol use: Never Comment: caffeine: none Drug use: Never FAMILY HISTORY Family History Problem Relation Name Age of Onset No Known Problems Daughter SURGICAL HISTORY Past Surgical History: Procedure Laterality Date MR ANGIOGRAM HEAD WO IV CONTRAST 03/16/2022 MR ANGIOGRAM HEAD WO IV CONTRAST 03/16/2022 PAP SMEAR 12/13/2021 WNL REVIEW OF SYSTEMS Review of Systems: Review of Systems All other systems reviewed and are negative. OBJECTIVE Objective: Physical Exam Constitutional: Appearance: Normal appearance. Genitourinary: Right Adnexa: not tender and no mass present. Left Adnexa: not tender and no mass present. No cervical discharge. Breasts: Breasts are soft. Right: Normal. Left: Normal. HENT: Head: Normocephalic. Nose: Nose normal. Mouth/Throat: Mouth: Mucous membranes are moist. Cardiovascular: Rate and Rhythm: Normal rate. Pulmonary: Effort: Pulmonary effort is normal. Abdominal: General: Bowel sounds are normal. Palpations: Abdomen is soft. Musculoskeletal: General: Normal range of motion. Cervical back: Normal range of motion. Neurological: General: No focal deficit present. Mental Status: She is alert. Skin: General: Skin is warm and dry. Psychiatric: Mood and Affect: Mood normal. Vitals and nursing note reviewed. 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 Vitals: Estimated body mass index is 33.88 kg/m as calculated from the following: Height as of 08/24/22: 5' 9 . Weight as of this encounter: 229 lb 6.4 oz. BP: 118/74 No LMP recorded. ASSESSMENT & PLAN ICD-10-CM 1. Well woman exam with routine gynecological exam Z01.419 Pap Smear HPV DNA probe, amplified Annual Exam: Patient presents today for an annual exam. Patient states she is doing well but she has been tired and libido low with occasional break through bleeding. She wishes to try different medication. We will give her 3 mo sample of slynd. she will start once she has completed other script. PAP as obtained without difficulty. Orders Placed This Encounter Procedures HPV DNA probe, amplified Follow Up: Patient is to return in one year for annual unless needed otherwise. Documented by Carmel Parsons LPN on behalf of: IBIS Rothman documented in this encounter [facility] 03-16-2022 Hospital Discharge instructions Sunil Redman MD - 03/16/2022 5:03 PM EDT You were seen and evaluated for a complicated migraine. Please follow-up with your doctors as requested documented in this encounter [email or web address] Phone: 03-16-2022 History of Present illness Narrative Images from the original note were not included. Physical Therapy Physical Therapy Cancel Note DATE: 03/16/2022 NAME: Konrad De Dios : 1990 Patient not seen this date for Physical Therapy due to: Patient independent with functional mobility. Will defer PT evaluation at this time. Please reorder PT if future needs arise. Discussed with pt who denies concerns and demonstrated independent bed mobility, transfers and ambulation within the room. Educated pt on requesting therapy if status changes this admission. Images from the original note were not included. Occupational Therapy [facility] Occupational Therapy Not Seen Note DATE: 03/16/2022 NAME: Konrad De Dios : 1990 Patient not seen this date for Occupational Therapy due to: Patient independent with ADLs and functional tasks with no acute OT needs. Pt demo independent bed mobility, donned socks while seated EOB, and performed functional mobility within hospital room. Pt reports no safety concerns for returning home at discharge. Will defer OT evaluation at this time. Please reorder OT if future needs arise. documented in this encounter [facility] [employer] Phone: Evaluation note Diagnosis TIA (transient ischemic attack)- Primary Unspecified transient cerebral ischemia documented in this encounter [facility] [employer] Phone: evaluation note* Diagnosis Transient weakness of right lower extremity- Primary Aphasia TIA (transient ischemic attack) Unspecified transient cerebral ischemia Multicystic dysplastic kidney, , affecting care of mother, antepartum Other known or suspected abnormality, not elsewhere classified, affecting management of mother, antepartum condition or complication documented in this encounter [facility] [employer] Phone: evaluation note* Diagnosis Well woman exam with routine gynecological exam Routine gynecological examination documented in this encounter [facility] HealthcareEvaluation note* Diagnosis Well woman exam with routine gynecological exam Routine gynecological examination documented in this encounter [facility] Diagnosis Other fatigue Weight gain finding Abnormal weight gain Advance Directives Documents on File Type Date 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 ACP-Advance Directive 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 Latest Code Status on File Code Status Date Activated Date Inactivated Comments Full Code 03/15/2018 1:28 PM 03/17/2018 1:59 PM Full Code 03/15/2018 5:38 AM 03/15/2018 1:28 PM Latest Code Status on File Code Status Date Activated Date Inactivated Comments Full Code 03/16/2022 2:33 AM Full Code 03/15/2018 1:28 PM 03/17/2018 1:59 PM Summary Purpose Family History No Family History Records FoundNo Family History Records FoundNo Family History Records FoundNo Family History Records FoundNo Family History Records Found Additional Source Comments INFORMATION SOURCE (unrecogn ized section and content) DATE CREATED AUTHOR 01/08/2021 [facility] DATE CREATED AUTHOR AUTHOR'S ORGANIZ ATION 03/16/2022 [facility] DATE CREATED AUTHOR AUTHOR'S ORGANIZ ATION 04/01/2022 [facility] DATE CREATED AUTHOR AUTHOR'S ORGANIZ ATION 07/27/2022 [facility] DATE CREATED AUTHOR AUTHOR'S ORGANIZ ATION 04/03/2025 [facility] Reason for Visit (unrecogniz ed section and content) Reason Comments Numbness INT right sided numb ness x an hour Reason Comments Numbness RUE and RLE Aphasia Reason Comments Well Women Visit Scheduled Active and Recently Administ ered Medications (unrecognized section and content) Medication Order 03/13/2022 03/14/2022 03/15/2022 0.9 % sodium chloride bolus (COMPLETED) 1,000 mL (10.3 mL/kg), IntraVENous, at 1,000 mL/hr, Administer over 1 Hours, ONCE, On Mon03/15/22 at 2230, For 1 dose 2240 (New Bag - Prov ider: Adry Shrestha RN)2350 (Stopped - Provider: Ale Mcfarland RN) aspirin tablet 325 mg (COMPLETED) 325 mg, Oral, ONCE, 1 dose, On Mon03/15/22 at 2230 2242 (Given - Provid er: Adry Shrestha RN) Scheduled Medication Order 03/14/2022 03/15/2022 03/16/2022 aspirin chewable tablet 81 mg 81 mg, Oral, DAILY, First dose on Mon03/16/22 at 0900, Until Discontinued 0820 (Given - Provid er: Belen Lynn, CHAYO) enoxaparin (LOVENOX) injection 40 mg 40 mg, SubCUTAneous, DAILY, First dose on Mon03/16/22 at 0900, Until Discontinued, Indication of Use: Prophylaxis-DVT/PE 0820 (Given - Provid er: Belen Lynn, CHAYO) vitamin plus iron 29-1 MG tablet 1 tablet 1 tablet, Oral, DAILY, First dose on Mon03/16/22 at 1300, Until Discontinued 1300 (Due) sodium chloride flush 0.9 % injection 5-40 mL 5-40 mL, IntraVENous, EVERY 12 HOURS SCHEDULED (2 times per day), First dose on Mon03/16/22 at 0900, Until Discontinued, For Line Patency: Peripheral IV = 5 mL; Midline or Central Line = 10 mL/lumen. If following IV push medication, administer flush at same rate as the IV push. Flush volume is determined by type of infusion therapy being given. For non-viscous solutions use: Peripheral IV = 5 mL Midline or Central Line = 10 mL/lumen For viscous solutions (i.e. blood components, parenteral nutrition, contrast media, or after obtaining blood sample) use: Peripheral IV = 10 mL Midline or Central Line = 20 mL/lumen 0822 (Given - Provid er: Belen Lynn RN)2100 (Due) PRN Medication Order 03/14/2022 03/15/2022 03/16/2022 0.9 % sodium chloride infusion IntraVENous, at 5-250 mL/hr, PRN, if patient receiving piggyback infusions and maintenance fluids are not ordered OR KVO fluids to protect IV site / prevent frequent line interruptions/ long duration, Starting on Mon03/16/22 at 0233, For piggyback infusion, administer at same rate as piggyback for a total of 25 mL. Enter 25 mL into dose field and piggyback rate into rate field of order. If piggyback is infusing at a rate less than 100 mL/hr, enter 25 mL into dose field and 100 mL/hr into rate field of order. For KVO fluids, enter rate of 20 mL/hr or less into rate field of order. acetaminophen (TYLENOL) suppository 650 mg(Linked Group 1) 650 mg, Rectal, EVERY 6 HOURS PRN, Starting on Mon03/16/22 at 0233, Until Discontinued, Pain Mild (1-3), Fever, For temp greater than 100.4 F (38 C), Administer if oral route cannot be used. acetaminophen (TYLENOL) tablet 650 mg(Linked Group 1) 650 mg, Oral, EVERY 6 HOURS PRN, Starting on Mon03/16/22 at 0233, Until Discontinued, Pain Mild (1-3), Fever, For temp greater than 100.4 F (38 C), Maximum dose of acetaminophen is 4000 mg from all sources in 24 hours. polyethylene glycol (GLYCOLAX) packet 17 g 17 g, Oral, DAILY PRN, Starting on Mon03/16/22 at 0233, Until Discontinued, Constipation, First line therapy for constipation sodium chloride flush 0.9 % injection 5-40 mL 5-40 mL, IntraVENous, PRN, Starting on Mon03/16/22 at 0233, Until Discontinued, Line Care, After every IV line use, For Line Patency: Peripheral IV = 5 mL; Midline or Central Line = 10 mL/lumen. If following IV push medication, administer flush at same rate as the IV push. Flush volume is determined by type of infusion therapy being given. For non-viscous solutions use: Peripheral IV = 5 mL Midline or Central Line = 10 mL/lumen For viscous solutions (i.e. blood components, parenteral nutrition, contrast media, or after obtaining blood sample) use: Peripheral IV = 10 mL Midline or Central Line = 20 mL/lumen Linked Groups Order Group 1: acetaminophen (TYLENOL) tablet 650 mgJump to med 650 mg, Oral, EVERY 6 HOURS PRN, Starting on Mon03/16/22 at 0233, Until Discontinued, Pain Mild (1-3), Fever, For temp greater than 100.4 F (38 C)
Maximum dose of acetaminophen is 4000 mg from all sources in 24 hours.
Or acetaminophen (TYLENOL) suppository 650 mgJump to med 650 mg, Rectal, EVERY 6 HOURS PRN, Starting on Mon03/16/22 at 0233, Until Discontinued, Pain Mild (1-3), Fever, For temp greater than 100.4 F (38 C)
Administer if oral route cannot be used.
Care Teams (unrecognized sec tion and content) Technician Support Engineer Relationship Specialty Start Date End Date Ruel Carlson, DO [address] [place] [phone] PCP - General 05/29/12 Technician Support Engineer Relationship Specialty Start Date End Date Ruel Carlson, DO [address] [place] [phone] PCP - General 05/29/12 Technician Support Engineer Relationship Specialty Start Date End Date Ruel Carlson MD [address] [place] [phone] PCP - General Internal Medicine 02/13/23 Technician Support Engineer Relationship Specialty Start Date End Date Ruel Carlson MD [address] [place] [phone] PCP - General Internal Medicine 02/13/23 Technician Support Engineer Relationship Specialty Start Date End Date Ruel Carlson MD [address] [place] [phone] PCP - General Internal Medicine 02/13/23 Technician Support Engineer Relationship Specialty Start Date End Date Ruel Carlson MD [address] [place], [place] [phone] PCP - General Internal Medicine 02/13/23 Technician Support Engineer Relationship Specialty Start Date End Date Ruel Carlson MD [address] [place] [phone] PCP - General Internal Medicine 02/13/23 Ordered Prescriptions (unrec ognized section and content) Prescription Sig Dispensed Refills Start Date End Da te Vit-Iron Carbonyl-FA ( VITAMIN PLUS IRON) 29-1 MG TABS tablet Take 1 tablet by mouth in the morning. 30 tablet 3 03/16/2022 FOR RECORDS PERTAINING TO PATIENTS WHO ARE OR HAVE BEEN ENROLLED IN A CHEMICAL DEPENDENCY/SUBSTANCEABUSE PROGRAM, SOME INFORMATION MAY BE OMITTED. This clinical summary was aggregated from multiple sources. Caution should be exercised in using it in the provision of clinical care. This summary normalizes information from multiple sources, and as a consequence, information in this document may materially change the coding, format and clinical context of patient data. In addition, data may be omitted in some cases. CLINICAL DECISIONS SHOULD BE BASED ON THE PRIMARY CLINICAL RECORDS. [facility] provides no warranty or guarantee of the accuracy or completeness of information in this document.
[2025-04-11 12:08] LABS: Age Gdln ACOG Testing Note (.); IGP, Aptima HPV, rfx 16/18,45 Note (.)
== END 2025-04-08 12:41 | disposition home or self-care (01) ==
LOC: LAB 12:40
PROVIDERS: PCP Obstetrics & Gynecology; Visit Provider Obstetrics & Gynecology
DX: Z01.419 Encounter for gynecological examination (general) (routine) without abnormal findings (principal)
CPT/HCPCS: 87624; 88175